=== PATIENT | female | born 1950 | race Caucasian/White ===

== ENCOUNTER 2016-12-16 17:00 | Inpatient (IN) ==
[2016-12-16] MEDS ORDERED: IOPAMIDOL 100 ML BOTTLE IJ ONE (17:01)
[2016-12-16] MEDS ORDERED: 0.9 % SODIUM CHLORIDE 1,000 ML IV ONE (17:15)
--- NOTE | 2016-12-16 17:28 | Emergency Department Note ---
SOB HPI - General Chief Complaint: Shortness of Breath/Dyspnea Stated Complaint: shortness of breath, low O2 sat, low bp Time Seen by Provider: 12/16/16 17:26 Source: patient Mode of arrival: ambulatory Limitations: no limitations - History of Present Illness 66-year-old female presents with shortness of breath and low blood pressure from Dr. Solis's office. She has had the shortness of breath and also a cough for about 3 weeks. She has had a chest x-ray which was negative 1 or 2 weeks ago. She has also been on azithromycin which she is finishing tomorrow. She has had an inhaler which she states helps and she also had some cough medicine. She states the cough is a little bit better but she is very short of breath. She states it does not matter what she is doing to be short of breath. She denies history of COPD or heart failure. She denies pedal edema. She states she has had a little bit of a fever. She is insulin-dependent type 2 diabetic and states she has not been eating much but her blood sugars have been running in the 300s. She denies abdominal pain, nausea, vomiting. She has not been drinking much water either. She gets dizzy when she stands up. - Related Data Home Medications Medication Instructions Recorded Confirmed Aspirin [Adult Low Dose Aspirin EC] 81 mg PO DAILY 02/02/15 12/16/16 glucosamine HCl 1,500 mg tablet 1,500 mg PO QDAY 11/17/15 12/16/16 Nortriptyline HCl [Pamelor] 10 mg PO HS 90 Days 03/01/16 12/16/16 colestipol 1 gram tablet 1 g PO QID tab 07/27/16 12/16/16 Previous Rx's Medication Instructions Recorded insulin syringe-needle U-100 1 mL See Dose Instructions .ROUTE 12/29/15 31 gauge x 08/23" .MEDSUPPLY #200 each sertraline 50 mg tablet 50 mg PO DAILY #90 tab 07/27/16 sitagliptin 100 mg tablet 100 mg PO QDAY #90 tab 07/27/16 omeprazole 20 mg capsule,delayed 20 mg PO QDAY #90 cap 10/14/16 release ropinirole 0.25 mg tablet 0.75 mg PO HS #270 tab 10/14/16 hydrocodone 7.5 mg-acetaminophen 1 tab PO Q6H PRN #20 tab 10/27/16 325 mg tablet methocarbamol 750 mg tablet 750 mg PO Q6H #30 tab 10/27/16 amlodipine 10 mg tablet 10 mg PO DAILY #90 tab 11/10/16 carvedilol 12.5 mg tablet 12.5 mg PO BID #180 tab 11/10/16 insulin glargine 100 unit/mL 180 unit SUB-Q .COMPLEX #180 ml 11/10/16 subcutaneous solution losartan 100 mg tablet 100 mg PO DAILY #90 tab 11/10/16 OneTouch Ultra Test strips See Dose Instructions .ROUTE 12/05/16 .MEDSUPPLY #200 each NS amoxicillin 875 mg-potassium 1 tab PO BID #20 tab 12/06/16 clavulanate 125 mg tablet albuterol sulfate HFA 90 2 puff INHALATION .Q4-6H PRN #18 g 12/13/16 mcg/actuation aerosol inhaler azithromycin 250 mg tablet 250 mg PO QDAY #6 tab 12/13/16 codeine 10 mg-guaifenesin 100 mg/5 10 ml PO TID PRN #120 ml 12/13/16 mL oral liquid Allergies Allergy/AdvReac Type Severity Reaction Status Date / Time No Known Drug Allergies Allergy Verified 12/16/16 16:03 Review of Systems All systems ED: reviewed and negative except as stated. Past Medical History - Past Medical History Medical history: Reports: arthritis, diabetes (insulin dependent type 2), hyperlipidemia, hypertension, osteoporosis, other (Spinal stenosis) Surgical history ED: Reports: cholecystectomy, knee replacement, orthopedic, other (Right wrist ORIF, carpal tunnel) [employer] history: Reports: non-contributory Family history: Reports: non-contributory - Social History smoking status: Former smoker Alcohol use: Reports: Occasionally Drug use: Reports: none Physical Exam - General Limitations: no limitations General appearance: alert, other (tachypnic) - Head Head exam: atraumatic - Eye Eye exam: Present: normal appearance. Absent: conjunctival injection - Neck Neck exam: Present: normal inspection, full ROM. Absent: tenderness, lymphadenopathy - Chest Chest inspection: Present: normal inspection, symmetric chest wall rise - Respiratory Respiratory exam: Present: other (decreased lung sounds in the lower lobes. She is not taking a deep breath). Absent: wheezes - Cardiovascular Cardiovascular exam: Present: regular rate, normal heart sounds - Abdominal Exam Abdominal exam: Present: soft, normal bowel sounds. Absent: tenderness - Extremities Exam Extremities exam: Present: normal inspection, full ROM - Neurological Exam Neurological exam: Present: alert, oriented X3 - Psychiatric Psychiatric exam: Present: anxious - Skin Skin exam: Present: warm, dry, intact Course Course Narrative: She will be admitted by Dr. Archuleta. She is still running 95% on 3L of oxygen at 2007 Vital Signs Temperature 98.8 F 12/16/16 17:00 Pulse Rate 73 12/16/16 17:00 Respiratory Rate 30 H 12/16/16 17:00 Blood Pressure 112/62 12/16/16 17:00 Pulse Oximetry (%) 82 L 12/16/16 17:00 Temperature 98.8 F 12/16/16 17:00 Pulse Rate 79 12/16/16 19:50 Respiratory Rate 30 H 12/16/16 19:50 Blood Pressure 98/68 12/16/16 19:50 Pulse Oximetry (%) 97 12/16/16 19:50 Shortness of Breath/Dyspnea - Lab Data Lab results reviewed: Yes I reviewed the patient's lab results. Result diagrams: 12/16/16 17:32 12/16/16 17:32 Lab Results 12/16/16 12/16/16 12/16/16 Range/Units 17:32 17:32 17:32 WBC 7.7 (4.5-11.0) K/mcL RBC 4.03 (4.00-5.20) M/mcL Hgb 11.8 L (12.0-15.0) g/dL Hct 35.5 L (36.0-48.0) % POC Hct (36.0-48.0) % MCV 88.1 (80.0-100.0) fL MCH 29.2 (26.0-34.0) pg MCHC 33.2 (31.0-36.0) g/dL RDW 15.7 H (11.5-14.5) % Plt Count 465 H (140-440) K/mcL MPV 7.7 (7.4-10.4) fL Total Counted 100 Seg Neutrophils % 86 H (38-78) % Band Neutrophils % Not Reportable Lymphocytes % 6 L (15-49) % Monocytes % (Manual) 6 (1-12) % Eosinophils % (Manual) 2 (0-7) % Platelet Estimate Increased (NORMAL) RBC Morphology Normal (NORMAL) VBG Lactic Acid 1.6 (0.5-2.2) mmol/L POC Sodium (133-145) mmol/L Sodium 135 (133-145) mmol/L POC Potassium (3.3-5.1) mmol/L Potassium 4.0 (3.3-5.1) mmol/L POC Chloride (96-108) mmol/L Chloride 94 L (96-108) mmol/L Carbon Dioxide 22 (22-30) mmol/L POC Total CO2 (22-30) mmol/L Anion Gap 19.0 H (8-16) POC BUN (8-23) mg/dl BUN 29 H (8-23) mg/dl Creatinine 1.2 H (0.6-1.1) mg/dl POC Creatinine (0.6-1.1) mg/dl GFR Calculation 46 Glucose 219 H (70-105) mg/dL POC Glucose (70-105) mg/dL Calcium 8.8 (8.6-10.4) mg/dl POC WB Ioniz Calcium (1.16-1.32) mmol/L Total Bilirubin 0.5 (0.0-1.0) mg/dL AST 47 H (0-37) U/l ALT 54 H (0-40) U/l Alkaline Phosphatase 221 H (39-117) U/L Troponin T (0-0.03) ng/ml NT-Pro-B Natriuret Pep (0-125) pg/ml Total Protein 6.5 (5.9-8.4) gm/dL Albumin 2.8 L (3.2-5.2) gm/dL Globulin 3.7 (2.2-3.7) gm/dL Albumin/Globulin Ratio 0.8 L (1.0-2.3) 12/16/16 12/16/16 12/16/16 Range/Units 17:32 17:32 18:05 WBC (4.5-11.0) K/mcL RBC (4.00-5.20) M/mcL Hgb (12.0-15.0) g/dL Hct (36.0-48.0) % POC Hct 37.0 (36.0-48.0) % MCV (80.0-100.0) fL MCH (26.0-34.0) pg MCHC (31.0-36.0) g/dL RDW (11.5-14.5) % Plt Count (140-440) K/mcL MPV (7.4-10.4) fL Total Counted Seg Neutrophils % (38-78) % Band Neutrophils % Lymphocytes % (15-49) % Monocytes % (Manual) (1-12) % Eosinophils % (Manual) (0-7) % Platelet Estimate (NORMAL) RBC Morphology (NORMAL) VBG Lactic Acid (0.5-2.2) mmol/L POC Sodium 134 (133-145) mmol/L Sodium (133-145) mmol/L POC Potassium 3.8 (3.3-5.1) mmol/L Potassium (3.3-5.1) mmol/L POC Chloride 102 (96-108) mmol/L Chloride (96-108) mmol/L Carbon Dioxide (22-30) mmol/L POC Total CO2 21 L (22-30) mmol/L Anion Gap (8-16) POC BUN 27 H (8-23) mg/dl BUN (8-23) mg/dl Creatinine (0.6-1.1) mg/dl POC Creatinine 1.2 H (0.6-1.1) mg/dl GFR Calculation Glucose (70-105) mg/dL POC Glucose 200 H (70-105) mg/dL Calcium (8.6-10.4) mg/dl POC WB Ioniz Calcium 1.03 L (1.16-1.32) mmol/L Total Bilirubin (0.0-1.0) mg/dL AST (0-37) U/l ALT (0-40) U/l Alkaline Phosphatase (39-117) U/L Troponin T < 0.01 (0-0.03) ng/ml NT-Pro-B Natriuret Pep 567.5 H (0-125) pg/ml Total Protein (5.9-8.4) gm/dL Albumin (3.2-5.2) gm/dL Globulin (2.2-3.7) gm/dL Albumin/Globulin Ratio (1.0-2.3) - Radiology Data Radiology results reviewed: Yes I reviewed the patient's radiology results. ARDs vs pneumonia. Negative for pulmonary embolism Disposition Pt seen by SHOE LAY OUT PLANNER/PA only: No Clinical Impression: ARDS (adult respiratory distress syndrome) Disposition: Xfer As Inpt ([facility]) Condition: Fair Referrals: Bacilio Alcocer MD [Primary Care Provider] -
[2016-12-16 18:00] LABS: Mean Cell Volume 88.1 fL (80.0-100.0); Mean Corpuscular HGB Conc 33.2 g/dL (31.0-36.0); Mean Corpuscular Hemoglobin 29.2 pg (26.0-34.0); Platelet Count 465 K/mcL (140-440); RBC 4.03 M/mcL (4.00-5.20); Red Cell Distribution Width 15.7 % (11.5-14.5)
[2016-12-16 18:25] LABS: ALT/SGPT 54 U/l (0-40); Albumin 2.8 gm/dL (3.2-5.2); Albumin/Globulin Ratio 0.8 (1.0-2.3); Alkaline Phosphatase 221 U/L (39-117); Blood Urea Nitrogen 29 mg/dl (8-23)
[2016-12-16 18:31] LABS: Eosinophils % (Manual) 2 % (0-7); Lymphocytes % 6 % (15-49); Monocytes % (Manual) 6 % (1-12); Platelet Estimate INCREASED (NORMAL); RBC Morphology NORMAL (NORMAL); Segmented Neutrophils % 86 % (38-78)
--- NOTE | 2016-12-16 18:49 | Cat Scan Report ---
CLINICAL INFORMATION: Dyspnea. Hypoxia COMPARISON: Previous chest x-ray dated 12/13/2016. Previous chest CT scan dated 09/01/2011 TECHNIQUE: Axial images obtained through the chest. 80 mL nonionic contrast material was administered, and scanning was performed during pulmonary arterial phase. Sagittally and coronally reformatted images were obtained. MIP reformatted images. FINDINGS: Patient has a history of smoking. There is centrilobular emphysema. There are diffuse groundglass infiltrates throughout both lungs. This is a nonspecific appearance. Differential diagnosis for acute disease including acute interstitial pneumonia, ARDS, pulmonary edema or hemorrhage, eosinophilic pneumonia. Infectious pneumonia can also cause this appearance including viral pneumonia is an mycoplasma pneumonia No focal consolidation. No significant bronchiectasis. No pulmonary parenchymal mass. Main pulmonary artery, right pulmonary artery, left pulmonary artery are negative. No intraluminal filling defects. No lobar, segmental, or subsegmental abnormalities. Negative examination for pulmonary embolism. Paula and mediastinum are negative. There are small perivascular and pretracheal mediastinal lymph nodes that measure 10 mm or less in size. No axillary adenopathy. Upper abdomen is negative. Patient has undergone previous cholecystectomy. No rib, sternal, or vertebral body abnormalities IMPRESSION: 1. Negative pulmonary CTA. No pulmonary embolism 2. Centrilobular emphysema 3. Diffuse groundglass infiltrates. Findings are nonspecific. Differential diagnosis is given above Interpreted and Authenticated by: Amor Whitmore 12/16/16
--- NOTE | 2016-12-16 20:20 | Internal Med History&Physical ---
Medical - H&P: HPI Patient information: Note initiated : 12/16/16 at 8:20 pm Service Date, if different from initiated Date: [] Patient: Irma Craig a 66 y/o F admitted on for shortness of breath, low O2 sat, low bp. Chief Complaint: [] History of present illness: Ms. Craig is a 66 year old Female with h/o smoking in the past presents to the ER with complaints of shortness of breath, cough, not feeling well, fever, headache and nausea/ vomiting x 2 weeks The patient was alright approximately 2 weeks ago, when she started to have some headache, with some photophobia, she also noted difficulty in breathing and cough, she had a low grade temperature tmax as per was 101. There was ? sinus symptoms. the cough was dry without sputum associated with shortness of breath, at rest and activity. She also thought there may be some wheezing. The patient symptoms worsened after a few days and therefore she saw Dr Loza, who started the patient on Augmentin. The patient did take the medication but did not have much relief. The patients symptoms so she went back to see the doctor. This time her oxygen sats were low in the clinic but she responded to albuterol She was started on z pack and albuterol along with some cough medication. Plan was also to use medrol dose pack, but I did not see any prescription for same. The patient took her meds but there was no improvement in her symptoms. She was supposed to see her pcp next week but since her condition worsend,and that she had nausea and vomiting, with very little pp intake she was asked to come to the ER for further eval. In the ER she was hypoxic and tachypenic, she had normal wbc count, slight bump in her creat from 0.8 ti 1.2, elevated neurtophils but normal eosinophils, mildly elevated bnp, neg ekg for acute ischemia and neg troponin. She underwent a CT Scan which shows a diffuse infiltrative disease ARDS vs Intersitial PNA vs Pulm Hemorrhage, vs ILD vs inflammatory disease vs atypical pna. Neg for PE The patient was admitted to the hospital for further management The patient denies any h/o chest pains, no edema feet, no sick contacts, no travel or camping, no pets or contact with birds. She has strong history of smoking but PFT done in 2016 was reported as normal. CXR in past normal, CT abdomen 2015 showed normal lung architecture. The patient has h/o smoking in the past but has quit in . All systems: reviewed and no additional remarkable complaints except as stated ( as per HPI) Medical - H&P: H Medical history: Medical History (Last Updated 12/16/16 @ 20:09 by Abigail Suarez PA-C) Metabolic Syndrome X (Chronic) Rash (Chronic) Chest pain (Resolved) Atrophic vaginitis (Chronic) Vasomotor instability (Chronic) Vaginitis and vulvovaginitis (Chronic) Urinary retention (Resolved 02/28/14) Gastric ulcer (Resolved) Stress reaction (Resolved) Spondylolysis of lumbosacral region (Chronic 03/14/14) Spinal stenosis of lumbar region (Chronic) Snoring (Chronic) Restless leg syndrome (Chronic) Reactive airway disease (Chronic 10/07/13) Plantar fasciitis (Resolved 07/03/14) Pancreatic cyst (Chronic 03/31/14) Palpitations (Resolved) Osteoporosis (Chronic) Osteoarthritis (Chronic 06/16/14) Obesity (Chronic) Lung nodule (Chronic) Neuropathy, 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) Dysmetabolic syndrome X (Chronic) Hyposmolality and/or hyponatremia (Resolved 03/04/14) Leukocytosis (Resolved 02/28/14) Intradermal nevus (Resolved 12/31/13) Insomnia (Chronic) Inguinal pain (Resolved) Hypotension (Chronic 02/28/14) Hyponatremia (Resolved 02/28/14) Hypertension, essential (Chronic) Hyperlipidemia (Chronic) Hematoma (Resolved 03/24/14) Heartburn (Chronic 02/14/14) Gastroesophageal reflux (Chronic) Closed right forearm fracture (Resolved 04/28/05) Fatigue (Chronic) Facet arthropathy (Chronic) Dyspnea on exertion (Chronic) Diverticulitis of colon (Chronic) Diarrhea (Resolved 01/16/13) Diabetes mellitus (Chronic) Dermatitis (Resolved) De Quervain's tenosynovitis, bilateral (Chronic) Depression (Chronic) Dehydration (Resolved 03/04/14) DDD (degenerative disc disease) (Chronic 03/14/14) Costochondritis (Chronic) Cholecystitis (Resolved 02/25/14) Chest pain (Chronic) Cataract (Chronic) Carpal tunnel syndrome (Chronic) Calcaneal spur (Chronic) Bursitis of both hips (Chronic 09/03/14) Paresthesia (Chronic 07/03/14) Bronchitis (Chronic 01/16/13) Abdominal pain, epigastric (Resolved) Surgical history: Past Surgical History (Last Reviewed 12/06/16 @ 14:07 by Lizz Loza, VAZQUEZ, ALEJA) S/P wrist surgery (Resolved) History of open reduction and internal fixation (ORIF) procedure (Resolved) Laceration of wrist, left (Resolved) Knee arthropathy (Resolved 09/15/08) History of excision of lesion (Resolved) H/O esophagogastroduodenoscopy (Resolved 03/20/14) History of colonoscopy (Resolved 05/11/10) History of cholecystectomy (Resolved 02/24/14) Pertinent family history: Family History (Last Reviewed 12/06/16 @ 14:07 by Lizz Loza, VAZQUEZ, ALEJA) Sister Malignant neoplasm of breast Malignant neoplasm of uterus Brother Malignant neoplasm of esophagus Mother Diabetes mellitus Father Mesothelioma Cardiac disease Medical - H&P: Meds Home Medications Medication Instructions Recorded Confirmed Type insulin syringe-needle U-100 1 mL See Dose Instructions .ROUTE 12/29/15 Rx 31 gauge x 5/16" .MEDSUPPLY #200 each omeprazole 20 mg capsule,delayed 20 mg PO QDAY #90 cap 10/14/16 12/16/16 Rx release ropinirole 0.25 mg tablet 0.75 mg PO HS #270 tab 10/14/16 12/16/16 Rx amlodipine 10 mg tablet 10 mg PO DAILY #90 tab 11/10/16 12/16/16 Rx carvedilol 12.5 mg tablet 12.5 mg PO BID #180 tab 11/10/16 12/16/16 Rx insulin glargine 100 unit/mL 180 unit SUB-Q .COMPLEX #180 ml 11/10/16 12/16/16 Rx subcutaneous solution losartan 100 mg tablet 100 mg PO DAILY #90 tab 11/10/16 12/16/16 Rx OneTouch Ultra Test strips See Dose Instructions .ROUTE 12/05/16 12/16/16 Rx .MEDSUPPLY #200 each NS Allergies Allergy/AdvReac Type Severity Reaction Status Date / Time No Known Drug Allergies Allergy Verified 12/16/16 16:03 Medical - H&P: Exam - Constitutional Vitals: Temp Pulse Resp BP Pulse Ox 98.8 F 91 H 23 H 123/82 100 12/16/16 17:00 12/16/16 20:05 12/16/16 20:01 12/16/16 20:05 12/16/16 20:05 Exam: GENERAL: The patient is a well-developed, well-nourished in no apparent distress. Is alert and oriented x3. VITAL SIGNS: Reviewed and as noted elsewhere. HEENT: Head is normocephalic and atraumatic. Extraocular muscles are intact. Pupils are equal, round, and reactive to light. Nares appeared normal. Mouth appears any without lesions. Mucous membranes are dry NECK: Normal to inspection, Supple, No lymphadenopathy or thyromegaly. LUNGS: Air entry equal on both sides but decreased bilaterally , no wheezing, very mild inspiratory crackles at bases noted. No rhonchi noted. No accessory muscles of respiration HEART: Regular rate and rhythm normal, S1 and S2 heard, no Gallop, S3 or Rub Noted, No Gross murmur heard. ABDOMEN: Soft, nontender, and nondistended. Positive bowel sounds. No hepatosplenomegaly was noted. EXTREMITIES: No cyanosis, clubbing, rash, lesions or edema. NEUROLOGIC: Cranial nerves II through XII are grossly intact. Motor and Sensory System Grossly Intact PSYCHIATRIC: Normal affect, Normal Mood. Appropriate Behavior. SKIN: No ulceration or wounds noted, No jaundice, No rash noted. Medical - H&P: Reslt - Labs CBC & Chem 7: 12/16/16 17:32 12/16/16 17:32 Labs: Short CBC 12/16/16 Range/Units 17:32 WBC 7.7 (4.5-11.0) K/mcL Hgb 11.8 L (12.0-15.0) g/dL Hct 35.5 L (36.0-48.0) % Plt Count 465 H (140-440) K/mcL BMP 12/16/16 17:32 Sodium 135 Potassium 4.0 Chloride 94 L Carbon Dioxide 22 BUN 29 H Creatinine 1.2 H Glucose 219 H Calcium 8.8 Cardiac Enzymes 12/16/16 Range/Units 17:32 Troponin T < 0.01 (0-0.03) ng/ml Liver Function 12/16/16 Range/Units 17:32 Total Bilirubin 0.5 (0.0-1.0) mg/dL AST 47 H (0-37) U/l ALT 54 H (0-40) U/l Alkaline Phosphatase 221 H (39-117) U/L Albumin 2.8 L (3.2-5.2) gm/dL - ABG Interpretation -: ABG interpreted by me Interpretation: respiratory alkalosis - EKG Data -: EKG Reviewed by Myself Medical - H&P: A/P - Narrative A/P Narrative: A/P Acute hypoxic Respiratory Failure: Treatment of underlying etiology, supplemental nasal canula, Place on bipap if declines. Interstitial Infiltrates: A very wide differential diagnosis, initiate workup for atypical organisms, mycoplasma, legionella, fungal panel, autoimmune workup sent. Will get Pulmonary evaluation. Start on Steroids as well as DuoNebs IV levofloxacin for pna coverage should cover atypicals, pt was treated with augmentin as well as zpack. DM: Glucose elevated, start on latus bid and sliding scale insulin, expect glucose to go high, takes 90 units of latnus bid at home, continue januvia. HTN hold bp meds for now, resume once bp stable Acute Kidney INjury: Creat is 1.2, baseline 0.8, IV fluids for now. h/o reflux disease: takes prilosec, start on pantoprazole. DVT hep sq Full code CARb consistent diet. Social History - Social History household members: spouse housing: house lives independently: Yes marital status: occupational status: retired - Tobacco smoking status: Former smoker - Alcohol alcohol intake frequency: a few times a week
--- NOTE | 2016-12-16 20:22 | Emergency Department Note ---
ED Note Addendum Note Addendum: I examined this patient and discussed it with the mid-level and agree with the assessment and plan.
[2016-12-16] MEDS ORDERED: MAGNESIUM HYDROXIDE 30 ML ORAL.SUSP PO PRN (21:22)
[2016-12-16] MEDS ORDERED: DEXTROSE 50% 50 ML VIAL IV PRN (21:22)
[2016-12-16] MEDS ORDERED: HYDROcodone/APAP 5/325MG TABLET PO PRN (21:22)
[2016-12-16] MEDS ORDERED: DEXTROSE 31 GM ORAL.SUSP PO PRN (21:22)
[2016-12-16] MEDS ORDERED: ONDANSETRON 4 MG/2 ML VIAL IV PRN (21:22)
[2016-12-16] MEDS ORDERED: ACETAMINOPHEN 325 MG TABLET PO PRN (21:22)
[2016-12-16] MEDS ORDERED: NALOXONE HCL 0.4 MG/ML VIAL IV PRN (21:22)
[2016-12-16] MEDS ORDERED: METHOCARBAMOL 750 MG TABLET PO PRN (21:44)
[2016-12-16] MEDS: 0.9 % SODIUM CHLORIDE 1,000 ML IV SCH (21:56)
[2016-12-16] MEDS: COLESTIPOLL 1 GM TABLET PO SCH (22:16)
[2016-12-16] MEDS: NORTRIPTYLINE 10 MG CAPSULE PO SCH (22:16)
[2016-12-16 22:37] LABS: C-Reactive Protein 14.4 mg/dl (0.0-0.8); Creatine Kinase 99 IU/L (24-170)
[2016-12-16 22:39] LABS: Complement C3 226.5 mg/dl (90-180); Rheumatoid Factor 11 IU/ml (0-14)
[2016-12-16] MEDS: rOPINIRole 0.25 MG TABLET PO SCH (22:43)
[2016-12-16] MEDS: INSULIN LISPRO 1 UNIT/0.01 ML UNIT SQ SCH (22:45)
[2016-12-16] MEDS: INSULIN GLARGINE, HUMAN 1 UNIT/0.01 ML SQ SCH (22:46)
[2016-12-16 22:48] LABS: Hepatitis B Surface Antibody NEGATIVE (NEGATIVE)
[2016-12-16] MEDS: methylPREDNISolone SOD SUCC 125 MG/2 ML VIAL IV SCH (22:48)
[2016-12-16 22:49] LABS: Hepatitis B Surface Antigen NEGATIVE (NEGATIVE)
[2016-12-16 22:51] LABS: HIV1/2 AG/AB 4TH Generation NON-REACTIVE; Hepatitis C Virus Antibody NON REACTIVE (NEGATIVE)
[2016-12-16] MEDS: HEPARIN 5,000 UNIT/ML VIAL SQ SCH (22:55)
[2016-12-16] MEDS: IPRATROPIUM/ALBUTEROL 3 ML AMPUL.NEB NEB SCH (22:55)
[2016-12-16] MEDS: LEVOFLOXACIN 750 MG/150 ML BAG IV SCH (22:55)
[2016-12-16 23:02] LABS: Estimated Average Glucose(eAG) 260 mg/dL; Hemoglobin A1C 10.7 % HGB (4.0-6.0)
[2016-12-17 00:20] LABS: Appearance,Urine CLEAR; Bilirubin,Urine NEG (NEG); Color,Urine YELLOW; Glucose,Urine (UA) NORM (NEG); Leukocyte Esterase,Urine NEG /uL (NEG); Nitrate,Urine NEG (NEG); PH,Urine 5.5 (5.0-9.0); Protein,Urine NEG (NEG); Specific Gravity,Urine 1.005 (1.000-1.035); Urine Blood NEG mg/dL (<0.03); Urobilinogen,Urine NORM (NEG)
[2016-12-17] MEDS: IPRATROPIUM/ALBUTEROL 3 ML AMPUL.NEB NEB SCH ×6 (03:10→22:39)
[2016-12-17] MEDS: methylPREDNISolone SOD SUCC 125 MG/2 ML VIAL IV SCH ×3 (05:13→21:54)
[2016-12-17] MEDS: 0.9 % SODIUM CHLORIDE 1,000 ML IV SCH ×3 (05:15→20:32)
[2016-12-17 05:20] LABS: Basophils # (Auto) 0 K/mcL (0.0-0.3); Basophils % (Auto) 0.1 % (0.0-2.0); Eosinophils # (Auto) 0 K/mcL (0.0-0.7); Eosinophils % (Auto) 0.5 % (0.0-7.0); Granulocytes % (Auto) 90.6 % (38.0-78.0); Lymphocytes # (Auto) 0.4 K/mcL (1.5-4.8); Lymphocytes % (Auto) 6.6 % (15.5-49.0); Mean Corpuscular HGB Conc 33.4 g/dL (31.0-36.0); Mean Corpuscular Hemoglobin 29.7 pg (26.0-34.0); Monocytes # (Auto) 0.1 K/mcL (0.1-0.9); Monocytes % (Auto) 2.2 % (1.0-12.0); Platelet Count 455 K/mcL (140-440); RBC 4.04 M/mcL (4.00-5.20); Red Cell Distribution Width 15.5 % (11.5-14.5)
[2016-12-17 05:45] LABS: ALT/SGPT 50 U/l (0-40); Albumin 2.6 gm/dL (3.2-5.2); Albumin/Globulin Ratio 0.7 (1.0-2.3); Alkaline Phosphatase 209 U/L (39-117); Bilirubin,Direct < 0.2 mg/dL (0.0-0.3); Blood Urea Nitrogen 19 mg/dl (8-23); Gamma Glutamyl Transpeptidase 122 U/L (5-36)
[2016-12-17] MEDS: 0.9 % SODIUM CHLORIDE 10 ML SYRINGE IV SCH ×3 (07:15→21:52)
[2016-12-17] MEDS: INSULIN LISPRO 1 UNIT/0.01 ML UNIT SQ SCH ×5 (07:42→21:56)
[2016-12-17] MEDS: PANTOPRAZOLE 40 MG TABLET PO SCH (07:42)
[2016-12-17] MEDS: SERTRALINE 50 MG TABLET PO SCH (08:19)
[2016-12-17] MEDS: HEPARIN 5,000 UNIT/ML VIAL SQ SCH ×2 (08:19→21:54)
[2016-12-17] MEDS: ASPIRIN 81 MG TAB.CHEW PO SCH (08:19)
[2016-12-17] MEDS: INSULIN GLARGINE, HUMAN 1 UNIT/0.01 ML SQ SCH ×2 (08:23→21:55)
[2016-12-17] MEDS: sitaGLIPtin 50 MG TABLET PO SCH (08:26)
[2016-12-17] MEDS: COLESTIPOLL 1 GM TABLET PO SCH ×4 (08:53→21:53)
--- NOTE | 2016-12-17 11:30 | Internal Med Progress Note ---
Medical - PN: Subj Patient information: Note initiated : 12/17/16 at 11:30 am Service Date, if different from initiated Date: [] Patient: Irma Craig a 66 y/o F admitted on 12/16/16 for shortness of breath, low O2 sat, low bp. Chief Complaint: [] Interval history: Ms. Craig is a 66 year old Female with h/o smoking in the past presents to the ER with complaints of shortness of breath, cough, not feeling well, fever, headache and nausea/ vomiting x 2 weeks The patient was alright approximately 2 weeks ago, when she started to have some headache, with some photophobia, she also noted difficulty in breathing and cough, she had a low grade temperature tmax as per was 101. There was ? sinus symptoms. the cough was dry without sputum associated with shortness of breath, at rest and activity. She also thought there may be some wheezing. The patient symptoms worsened after a few days and therefore she saw Dr Loza, who started the patient on Augmentin. The patient did take the medication but did not have much relief. The patients symptoms so she went back to see the doctor. This time her oxygen sats were low in the clinic but she responded to albuterol She was started on z pack and albuterol along with some cough medication. Plan was also to use medrol dose pack, but I did not see any prescription for same. The patient took her meds but there was no improvement in her symptoms. She was supposed to see her pcp next week but since her condition worsend,and that she had nausea and vomiting, with very little pp intake she was asked to come to the ER for further eval. In the ER she was hypoxic and tachypenic, she had normal wbc count, slight bump in her creat from 0.8 ti 1.2, elevated neurtophils but normal eosinophils, mildly elevated bnp, neg ekg for acute ischemia and neg troponin. She underwent a CT Scan which shows a diffuse infiltrative disease ARDS vs Intersitial PNA vs Pulm Hemorrhage, vs ILD vs inflammatory disease vs atypical pna. Neg for PE The patient was admitted to the hospital for further management The patient denies any h/o chest pains, no edema feet, no sick contacts, no travel or camping, no pets or contact with birds. She has strong history of smoking but PFT done in 2016 was reported as normal. CXR in past normal, CT abdomen 2015 showed normal lung architecture. The patient has h/o smoking in the past but has quit in . 12/17: The patient seen examined, no acute ovenight events, her oxygen requirement went up from 3L to 6L this am, and now is being weaned down, she has no new concerns or complaints to report, does have shortness of breath and cough which is still bothering her. Pertinent ROS: Denies headache, dizziness Present chest pain with cough, no palpitations Present cough and shortness of breath Denies abdominal pain, nausea or vomiting. - Constitutional Vitals: Vital Signs Temp Pulse Resp BP Pulse Ox 98.8 F 80 13 96/67 91 12/17/16 07:10 12/17/16 11:16 12/17/16 11:16 12/17/16 07:10 12/17/16 07:10 Period Temp Pulse Resp BP Sys/Waldron Pulse Ox Last 24 Hr 96.9 F-98.8 F 74-91 13-30 96-121/51-67 78-99 Intake and Output 12/16/16 12/17/16 12/17/16 21:59 05:59 13:59 Intake Total 1450 / 1450 Output Total 150 / 150 1200 / 1200 150 / 150 Balance -150 / 850 250 / 250 -150 / -150 Weight 206 lb 6.4 oz 206 lb 6.4 oz Intake & Output: Intake & Output 12/16/16 12/17/16 12/17/16 21:59 05:59 13:59 Intake Total 1450 / 1450 Output Total 150 / 150 1200 / 1200 150 / 150 Balance -150 / 850 250 / 250 -150 / -150 Weight 206 lb 6.4 oz 206 lb 6.4 oz Intake: IV 1150 / 1150 Sodium Chloride 0.9% 1, 1000 / 1000 000 ml @ 150 mls/hr IV . Q6H40M [facility] Rx#:[id number] Oral 300 / 300 Output: Void Amount 150 / 150 1200 / 1200 150 / 150 Exam: Constitutional; Afebrile, cooperative, alert, not in distress. Eyes- No icterus, , No periorbital swelling Ears- Ext ear normal, hearing normal to conversation. Neck- Midline trachea, supple Respiratory system: Air Entry equal on both sides, decreased air entry bilaterally, consuelo inspiratory crackles, mild exp wheezing. CVS- Rate rhythm regular, S1,S2 heard, no gallop, no rub. Abdomen- Soft nontender abdomen, no organomegaly, no tenderness, no guarding or rigidity, WOOL BRUSHER- AOOx3, moving all extremities, no gross focal deficit noted. Medical - PN: Obj Da - Labs CBC & Chem 7: 12/17/16 03:56 12/17/16 03:56 Labs: Abnormal Lab Results 12/17/16 12/17/16 12/16/16 03:56 03:56 21:51 Hct 35.9 L RDW 15.5 H Plt Count 455 H Gran % 90.6 H Lymph % (Auto) 6.6 L Lymph # (Auto) 0.4 L ESR Carbon Dioxide 20 L Anion Gap 17.0 H Glucose 217 H Hemoglobin A1c 10.7 H GGT 122 H AST 44 H ALT 50 H Alkaline Phosphatase 209 H Lactate Dehydrogenase 301 H C-Reactive Protein Albumin 2.6 L Globulin 3.9 H Albumin/Globulin Ratio 0.7 L Triglycerides 155 H Complement C3 Complement C4 12/16/16 12/16/16 12/16/16 21:51 21:51 21:51 Hct RDW Plt Count Gran % Lymph % (Auto) Lymph # (Auto) ESR 111 H Carbon Dioxide Anion Gap Glucose Hemoglobin A1c GGT AST ALT Alkaline Phosphatase Lactate Dehydrogenase C-Reactive Protein 14.4 H Albumin Globulin Albumin/Globulin Ratio Triglycerides Complement C3 226.5 H Complement C4 60.7 H Meds: Medications Acetaminophen (Tylenol) 650 mg PO Q6HP PRN PRN Reason: PAIN/FEVER > 101 Hydrocodone Bitart/Acetaminophen (Watson 5/325mg) 1 tab PO Q4HP PRN PRN Reason: Pain Albuterol/Ipratropium (Duoneb) 3 ml NEB Q4HRT [facility] Last Admin: 12/17/16 11:12 Dose: 3 ml Aspirin (Aspirin) 81 mg PO DAILY [facility] Last Admin: 12/17/16 08:19 Dose: 81 mg Colestipol HCl (Colestid) 1 gm PO QID [facility] Last Admin: 12/17/16 08:53 Dose: 1 gm Dextrose (Dextrose 50%) 0 ml IV UD PRN PRN Reason: Hypoglycemia Diagnostic Test (Pha) (Accu-Chek) 1 each FS ACHS [facility] Last Admin: 12/17/16 07:39 Dose: 1 each Glucose (Insta-Glucose) 15 gm PO PRN PRN PRN Reason: Hypoglycemia Heparin Sodium (Porcine) (Heparin) 5,000 unit SQ Q12 [facility] Last Admin: 12/17/16 08:19 Dose: 5,000 unit Levofloxacin (Levaquin) 750 mg in 150 mls @ 100 mls/hr IV DAILY [facility] Stop: 12/22/16 10:29 Last Infusion: 12/17/16 00:30 Dose: Infused Sodium Chloride (Sodium Chloride 0.9%) 1,000 mls @ 150 mls/hr IV .Q6H40M [facility] Stop: 12/18/16 00:01 Last Admin: 12/17/16 05:15 Dose: 150 mls/hr Insulin Glargine (Lantus) 80 unit SQ BID [facility] Insulin Human Lispro (Humalog) 0 unit SQ ACHS [facility] PRN Reason: Protocol Last Admin: 12/17/16 07:42 Dose: 8 unit Magnesium Hydroxide (Milk Of Magnesia) 30 ml PO DAILYP PRN PRN Reason: Constipation Methocarbamol (Robaxin) 750 mg PO Q6HP PRN PRN Reason: Muscle Spasm Methylprednisolone Sodium Succinate (Solu-Medrol) 62.5 mg IV Q8 [facility] Last Admin: 12/17/16 05:13 Dose: 62.5 mg Naloxone HCl (Narcan) 0.1 mg IV Q2MIN PRN PRN Reason: Opiate Reversal Nortriptyline HCl (Pamelor) 10 mg PO HS [facility] Last Admin: 12/16/16 22:16 Dose: 10 mg Ondansetron HCl (Zofran) 4 mg IV Q4HP PRN PRN Reason: Nausea And Vomiting Pantoprazole Sodium (Protonix) 40 mg PO QAMAC [facility] Last Admin: 12/17/16 07:42 Dose: 40 mg Ropinirole HCl (Requip) 0.75 mg PO HS [facility] Last Admin: 12/16/16 22:43 Dose: 0.75 mg Sertraline HCl (Zoloft) 50 mg PO DAILY [facility] Last Admin: 12/17/16 08:19 Dose: 50 mg Sitagliptin Phosphate (Januvia) 100 mg PO QDAY [facility] Last Admin: 12/17/16 08:26 Dose: 100 mg Sodium Chloride (Saline Flush) 10 ml IV Q8 [facility] Last Admin: 12/17/16 07:15 Dose: 10 ml Medical - PN: A/P - Time Spent With Patient Total time spent is greater than 50% in coordination of care (as documented) at patient's floor/unit and/or counseling patient: - Narrative A/P Narrative: A/P Acute hypoxic Respiratory Failure: Treatment of underlying etiology, supplemental nasal canula 4-5L for now, Place on bipap if declines. abg reviewed, Interstitial Infiltrates: A very wide differential diagnosis, initiate workup for atypical organisms, mycoplasma, legionella, fungal panel, autoimmune workup sent. Will get Pulmonary evaluation. Start on Steroids as well as DuoNebs IV levofloxacin for pna coverage should cover atypicals, pt was treated with augmentin as well as zpack. Pulmonary consulted, workup for autoimmune disease pending. Mycoplasma is neg. DM: Glucose elevated, increase lantus to 80 bid, uptitreate as needed. HTN hold bp meds for now, resume once bp stable Acute Kidney INjury: Creat is back to baseline Abnl LFt mildly elevated ast, alt and alk phos, consider USG of the liver if does not improve, likely from use of augmentin, hepatitis panel pending. s/p cholecystectomy h/o reflux disease: takes prilosec, start on pantoprazole. DVT hep sq Full code CARb consistent diet.
[2016-12-17] MEDS: LEVOFLOXACIN 750 MG/150 ML BAG IV SCH (13:54)
[2016-12-17] MEDS: NORTRIPTYLINE 10 MG CAPSULE PO SCH (21:53)
[2016-12-17] MEDS: rOPINIRole 0.25 MG TABLET PO SCH (21:55)
[2016-12-18] MEDS: IPRATROPIUM/ALBUTEROL 3 ML AMPUL.NEB NEB SCH ×6 (03:04→22:26)
[2016-12-18] MEDS: 0.9 % SODIUM CHLORIDE 10 ML SYRINGE IV SCH ×4 (05:37→21:47)
[2016-12-18] MEDS: methylPREDNISolone SOD SUCC 125 MG/2 ML VIAL IV SCH ×3 (05:41→21:48)
[2016-12-18] MEDS: PANTOPRAZOLE 40 MG TABLET PO SCH (07:42)
[2016-12-18] MEDS: sitaGLIPtin 50 MG TABLET PO SCH (08:12)
[2016-12-18] MEDS: SERTRALINE 50 MG TABLET PO SCH (08:12)
[2016-12-18] MEDS: ASPIRIN 81 MG TAB.CHEW PO SCH (08:13)
[2016-12-18] MEDS: INSULIN LISPRO 1 UNIT/0.01 ML UNIT SQ SCH ×4 (08:26→20:37)
[2016-12-18] MEDS: INSULIN GLARGINE, HUMAN 1 UNIT/0.01 ML SQ SCH ×2 (08:27→20:37)
[2016-12-18 08:49] LABS: Basophils # (Auto) 0 K/mcL (0.0-0.3); Basophils % (Auto) 0 % (0.0-2.0); Eosinophils # (Auto) 0.1 K/mcL (0.0-0.7); Eosinophils % (Auto) 0.8 % (0.0-7.0); Granulocytes % (Auto) 90.5 % (38.0-78.0); Lymphocytes # (Auto) 0.5 K/mcL (1.5-4.8); Lymphocytes % (Auto) 5.4 % (15.5-49.0); Mean Cell Volume 90.1 fL (80.0-100.0); Mean Corpuscular HGB Conc 32.9 g/dL (31.0-36.0); Mean Corpuscular Hemoglobin 29.6 pg (26.0-34.0); Monocytes # (Auto) 0.3 K/mcL (0.1-0.9); Monocytes % (Auto) 3.3 % (1.0-12.0); Platelet Count 463 K/mcL (140-440); RBC 3.84 M/mcL (4.00-5.20); Red Cell Distribution Width 15.8 % (11.5-14.5)
[2016-12-18 09:12] LABS: ALT/SGPT 37 U/l (0-40); Albumin 2.8 gm/dL (3.2-5.2); Albumin/Globulin Ratio 0.8 (1.0-2.3); Alkaline Phosphatase 189 U/L (39-117); Bilirubin,Direct < 0.2 mg/dL (0.0-0.3); Blood Urea Nitrogen 16 mg/dl (8-23); Gamma Glutamyl Transpeptidase 101 U/L (5-36); Uric Acid 2.6 mg/dL (2.5-8.0)
[2016-12-18] MEDS: COLESTIPOLL 1 GM TABLET PO SCH ×4 (09:24→20:13)
[2016-12-18] MEDS: HEPARIN 5,000 UNIT/ML VIAL SQ SCH ×2 (09:25→20:13)
[2016-12-18] MEDS: LEVOFLOXACIN 750 MG/150 ML BAG IV SCH (09:26)
--- NOTE | 2016-12-18 15:13 | Internal Med Progress Note ---
Medical - PN: Subj Patient information: Note initiated : 12/18/16 at 3:09 pm Service Date, if different from initiated Date: [] Patient: Irma Craig a 66 y/o F admitted on 12/16/16 for shortness of breath, low O2 sat, low bp. Chief Complaint: [] Interval history: Ms. Craig is a 66 year old Female with h/o smoking in the past presents to the ER with complaints of shortness of breath, cough, not feeling well, fever, headache and nausea/ vomiting x 2 weeks The patient was alright approximately 2 weeks ago, when she started to have some headache, with some photophobia, she also noted difficulty in breathing and cough, she had a low grade temperature tmax as per was 101. There was ? sinus symptoms. the cough was dry without sputum associated with shortness of breath, at rest and activity. She also thought there may be some wheezing. The patient symptoms worsened after a few days and therefore she saw Dr Loza, who started the patient on Augmentin. The patient did take the medication but did not have much relief. The patients symptoms so she went back to see the doctor. This time her oxygen sats were low in the clinic but she responded to albuterol She was started on z pack and albuterol along with some cough medication. Plan was also to use medrol dose pack, but I did not see any prescription for same. The patient took her meds but there was no improvement in her symptoms. She was supposed to see her pcp next week but since her condition worsend,and that she had nausea and vomiting, with very little pp intake she was asked to come to the ER for further eval. In the ER she was hypoxic and tachypenic, she had normal wbc count, slight bump in her creat from 0.8 ti 1.2, elevated neurtophils but normal eosinophils, mildly elevated bnp, neg ekg for acute ischemia and neg troponin. She underwent a CT Scan which shows a diffuse infiltrative disease ARDS vs Intersitial PNA vs Pulm Hemorrhage, vs ILD vs inflammatory disease vs atypical pna. Neg for PE The patient was admitted to the hospital for further management The patient denies any h/o chest pains, no edema feet, no sick contacts, no travel or camping, no pets or contact with birds. She has strong history of smoking but PFT done in 2016 was reported as normal. CXR in past normal, CT abdomen 2015 showed normal lung architecture. The patient has h/o smoking in the past but has quit in . 12/17: The patient seen examined, no acute ovenight events, her oxygen requirement went up from 3L to 6L this am, and now is being weaned down, she has no new concerns or complaints to report, does have shortness of breath and cough which is still bothering her. 12/18: Patient seen examined, no acute overnight events, echo done shows normal lvef, pt feels somewhat better, but still on 4L oxygen, desaturates easily with minimal movement. Pulm eval appreciated. Await autoimmune workup for now. Plan of care reviewed with the patient and her . Pertinent ROS: Denies headache, dizziness Denies chest pain, palpitations Present cough but improved, sob present. Denies abdominal pain, nausea or vomiting. - Constitutional Vitals: Vital Signs Temp Pulse Resp BP Pulse Ox 96.4 F L 90 18 128/67 94 12/18/16 12:00 12/18/16 14:30 12/18/16 14:30 12/18/16 12:00 12/18/16 12:00 Period Temp Pulse Resp BP Sys/Waldron Pulse Ox Last 24 Hr 96.4 F-98.1 F 76-96 18-28 103-134/46-67 90-95 Intake and Output 12/18/16 12/18/16 12/18/16 05:59 13:59 21:59 Intake Total 200 / 200 1370 / 1370 Output Total 600 / 600 300 / 300 Balance -400 / -400 1070 / 1070 Intake & Output: Intake & Output 12/18/16 12/18/16 12/18/16 05:59 13:59 21:59 Intake Total 200 / 200 1370 / 1370 Output Total 600 / 600 300 / 300 Balance -400 / -400 1070 / 1070 Intake: IV 1150 / 1150 Oral 200 / 200 220 / 220 Output: Void Amount 600 / 600 300 / 300 Other: Meal Lunch Percent of Meal Consumed 100% Feeding Ability Independent Exam: Constitutional; Afebrile, cooperative, alert, not in distress. Eyes- No icterus, , No periorbital swelling Ears- Ext ear normal, hearing normal to conversation. Neck- Midline trachea, supple Respiratory system: Air Entry equal on both sides,consuelo inspiratory crackles, predominant low 2/3. CVS- Rate rhythm regular, S1,S2 heard, no gallop, no rub. Abdomen- Soft nontender abdomen, no organomegaly, no tenderness, no guarding or rigidity, FEED RESEARCH AIDE- AOOx3, moving all extremities, no gross focal deficit noted. Medical - PN: Obj Da - Labs CBC & Chem 7: 12/18/16 08:10 12/18/16 08:10 Labs: Abnormal Lab Results 12/18/16 12/18/16 12/17/16 08:10 08:10 03:56 RBC 3.84 L Hgb 11.4 L Hct 34.6 L 35.9 L RDW 15.8 H 15.5 H Plt Count 463 H 455 H Gran % 90.5 H 90.6 H Lymph % (Auto) 5.4 L 6.6 L Lymph # (Auto) 0.5 L 0.4 L ESR Carbon Dioxide Anion Gap Glucose 343 H Hemoglobin A1c Calcium 8.5 L Phosphorus 2.6 L GGT 101 H AST ALT Alkaline Phosphatase 189 H Lactate Dehydrogenase 261 H C-Reactive Protein Albumin 2.8 L Globulin Albumin/Globulin Ratio 0.8 L Triglycerides Complement C3 Complement C4 12/17/16 12/16/16 12/16/16 03:56 21:51 21:51 RBC Hgb Hct RDW Plt Count Gran % Lymph % (Auto) Lymph # (Auto) ESR Carbon Dioxide 20 L Anion Gap 17.0 H Glucose 217 H Hemoglobin A1c 10.7 H Calcium Phosphorus GGT 122 H AST 44 H ALT 50 H Alkaline Phosphatase 209 H Lactate Dehydrogenase 301 H C-Reactive Protein Albumin 2.6 L Globulin 3.9 H Albumin/Globulin Ratio 0.7 L Triglycerides 155 H Complement C3 226.5 H Complement C4 60.7 H 12/16/16 12/16/16 21:51 21:51 RBC Hgb Hct RDW Plt Count Gran % Lymph % (Auto) Lymph # (Auto) ESR 111 H Carbon Dioxide Anion Gap Glucose Hemoglobin A1c Calcium Phosphorus GGT AST ALT Alkaline Phosphatase Lactate Dehydrogenase C-Reactive Protein 14.4 H Albumin Globulin Albumin/Globulin Ratio Triglycerides Complement C3 Complement C4 Meds: Medications Acetaminophen (Tylenol) 650 mg PO Q6HP PRN PRN Reason: PAIN/FEVER > 101 Hydrocodone Bitart/Acetaminophen ([place] 5/325mg) 1 tab PO Q4HP PRN PRN Reason: Pain Albuterol/Ipratropium (Duoneb) 3 ml NEB Q4HRT [facility] Last Admin: 12/18/16 14:30 Dose: 3 ml Aspirin (Aspirin) 81 mg PO DAILY [facility] Last Admin: 12/18/16 08:13 Dose: 81 mg Colestipol HCl (Colestid) 1 gm PO QID [facility] Last Admin: 12/18/16 14:18 Dose: 1 gm Dextrose (Dextrose 50%) 0 ml IV UD PRN PRN Reason: Hypoglycemia Diagnostic Test (Pha) (Accu-Chek) 1 each FS ACHS [facility] Last Admin: 12/18/16 12:12 Dose: 1 each Glucose (Insta-Glucose) 15 gm PO PRN PRN PRN Reason: Hypoglycemia Heparin Sodium (Porcine) (Heparin) 5,000 unit SQ Q12 [facility] Last Admin: 12/18/16 09:25 Dose: 5,000 unit Levofloxacin (Levaquin) 750 mg in 150 mls @ 100 mls/hr IV DAILY [facility] Stop: 12/22/16 10:29 Last Infusion: 12/18/16 11:00 Dose: Infused Insulin Glargine (Lantus) 80 unit SQ BID [facility] Last Admin: 12/18/16 08:27 Dose: 80 unit Insulin Human Lispro (Humalog) 0 unit SQ ACHS [facility] PRN Reason: Protocol Last Admin: 12/18/16 12:12 Dose: 12 unit Magnesium Hydroxide (Milk Of Magnesia) 30 ml PO DAILYP PRN PRN Reason: Constipation Methocarbamol (Robaxin) 750 mg PO Q6HP PRN PRN Reason: Muscle Spasm Methylprednisolone Sodium Succinate (Solu-Medrol) 62.5 mg IV Q8 [facility] Last Admin: 12/18/16 14:18 Dose: 62.5 mg Naloxone HCl (Narcan) 0.1 mg IV Q2MIN PRN PRN Reason: Opiate Reversal Nortriptyline HCl (Pamelor) 10 mg PO HS [facility] Last Admin: 12/17/16 21:53 Dose: 10 mg Ondansetron HCl (Zofran) 4 mg IV Q4HP PRN PRN Reason: Nausea And Vomiting Pantoprazole Sodium (Protonix) 40 mg PO QAMAC [facility] Last Admin: 12/18/16 07:42 Dose: 40 mg Ropinirole HCl (Requip) 0.75 mg PO HS [facility] Last Admin: 12/17/16 21:55 Dose: 0.75 mg Sertraline HCl (Zoloft) 50 mg PO DAILY [facility] Last Admin: 12/18/16 08:12 Dose: 50 mg Sitagliptin Phosphate (Januvia) 100 mg PO QDAY [facility] Last Admin: 12/18/16 08:12 Dose: 100 mg Sodium Chloride (Saline Flush) 10 ml IV Q8 [facility] Last Admin: 12/18/16 14:19 Dose: 10 ml Medical - PN: A/P - Time Spent With Patient Total time spent is greater than 50% in coordination of care (as documented) at patient's floor/unit and/or counseling patient: - Narrative A/P Narrative: A/P Acute hypoxic Respiratory Failure: Treatment of underlying etiology, supplemental nasal canula 4-5L for now, Place on bipap if declines. abg reviewed, Interstitial Infiltrates: A very wide differential diagnosis, workup pending for autoimmune, fungal etiology, on steroids and levofloxacin continue same, echo is neg, pulm consulted, plan of care reviewed with Dr Guido. . DM: Glucose elevated, increase lantus to 100units bid. high dose sliding scale insulin. HTN hold bp meds for now, resume once bp stable Acute Kidney INjury: Creat is back to baseline Abnl LFt mildly elevated ast, alt and alk phos on admission, but now improved. h/o reflux disease: takes Prilosec, start on pantoprazole for now. DVT hep sq Full code CARb consistent diet.
--- NOTE | 2016-12-18 16:55 | Pulmonology Progress Note ---
Subjective Patient information: Note initiated : 12/18/16 at 4:48 pm Service Date, if different from initiated Date: [] Patient: Irma Craig 66 y/o F admitted on 12/16/16 for shortness of breath, low O2 sat, low bp. Chief Complaint: [Dyspnea] The patient reports feeling a little better today. IS up to 1500ml. labs essentially stable and exam unchanged. Crackles persist on exam, Echo without significant findings. Imp: interstitial inflamatory process etio? Plan continue Levaquinn and steroid. Repeat CXR in AM Tee Guido MD Objective Vital Signs Temp Pulse Pulse Resp BP BP Pulse Ox 12/18/16 15:19 96.7 F L 32 H 123/54 92 12/18/16 14:30 90 18 12/18/16 12:00 96.4 F L 28 H 128/67 94 12/18/16 10:35 77 18 12/18/16 08:22 98.1 F 95 H 20 134/67 93 12/18/16 08:15 93 12/18/16 07:21 76 18 95 12/18/16 06:45 80 18 12/18/16 05:35 77 91 12/18/16 04:00 97.8 F 81 28 H 103/46 93 12/18/16 00:53 96 H 90 12/17/16 23:26 97.0 F 80 26 H 118/51 95 12/17/16 23:11 91 H 118/51 93 12/17/16 22:59 85 26 H 12/17/16 19:30 97.9 F 85 85 26 H 107/55 92 12/17/16 19:29 85 94 12/17/16 19:00 87 107/55 92 12/17/16 18:29 90 91 Intake and Output 12/18/16 12/18/16 12/18/16 05:59 13:59 21:59 Intake Total 200 / 200 1370 / 1370 360 / 360 Output Total 600 / 600 300 / 300 300 / 300 Balance -400 / -400 1070 / 1070 60 / 60 Intake: IV 1150 / 1150 Oral 200 / 200 220 / 220 360 / 360 Output: Void Amount 600 / 600 300 / 300 300 / 300 Other: Meal Lunch Percent of Meal Consumed 100% Feeding Ability Independent Intake & Output: Intake & Output 12/18/16 12/18/16 12/18/16 05:59 13:59 21:59 Intake Total 200 / 200 1370 / 1370 360 / 360 Output Total 600 / 600 300 / 300 300 / 300 Balance -400 / -400 1070 / 1070 60 / 60 Intake: IV 1150 / 1150 Oral 200 / 200 220 / 220 360 / 360 Output: Void Amount 600 / 600 300 / 300 300 / 300 Other: Meal Lunch Percent of Meal Consumed 100% Feeding Ability Independent CBC and BMP: 12/18/16 08:10 12/18/16 08:10 Abnormal lab findings: Abnormal Labs 12/16/16 12/16/16 12/16/16 21:51 21:51 21:51 RBC Hgb Hct RDW Plt Count Gran % Lymph % (Auto) Lymph # (Auto) ESR 111 H Carbon Dioxide Anion Gap Glucose Hemoglobin A1c Calcium Phosphorus GGT AST ALT Alkaline Phosphatase Lactate Dehydrogenase C-Reactive Protein 14.4 H Albumin Globulin Albumin/Globulin Ratio Triglycerides Complement C3 226.5 H Complement C4 60.7 H 12/16/16 12/17/16 12/17/16 21:51 03:56 03:56 RBC Hgb Hct 35.9 L RDW 15.5 H Plt Count 455 H Gran % 90.6 H Lymph % (Auto) 6.6 L Lymph # (Auto) 0.4 L ESR Carbon Dioxide 20 L Anion Gap 17.0 H Glucose 217 H Hemoglobin A1c 10.7 H Calcium Phosphorus GGT 122 H AST 44 H ALT 50 H Alkaline Phosphatase 209 H Lactate Dehydrogenase 301 H C-Reactive Protein Albumin 2.6 L Globulin 3.9 H Albumin/Globulin Ratio 0.7 L Triglycerides 155 H Complement C3 Complement C4 12/18/16 12/18/16 08:10 08:10 RBC 3.84 L Hgb 11.4 L Hct 34.6 L RDW 15.8 H Plt Count 463 H Gran % 90.5 H Lymph % (Auto) 5.4 L Lymph # (Auto) 0.5 L ESR Carbon Dioxide Anion Gap Glucose 343 H Hemoglobin A1c Calcium 8.5 L Phosphorus 2.6 L GGT 101 H AST ALT Alkaline Phosphatase 189 H Lactate Dehydrogenase 261 H C-Reactive Protein Albumin 2.8 L Globulin Albumin/Globulin Ratio 0.8 L Triglycerides Complement C3 Complement C4
[2016-12-18] MEDS: rOPINIRole 0.25 MG TABLET PO SCH (20:12)
[2016-12-18] MEDS: NORTRIPTYLINE 10 MG CAPSULE PO SCH (20:13)
[2016-12-19] MEDS: IPRATROPIUM/ALBUTEROL 3 ML AMPUL.NEB NEB SCH ×6 (02:59→23:10)
[2016-12-19] MEDS: methylPREDNISolone SOD SUCC 125 MG/2 ML VIAL IV SCH ×2 (05:38→14:11)
[2016-12-19] MEDS: 0.9 % SODIUM CHLORIDE 10 ML SYRINGE IV SCH ×4 (05:39→22:00)
[2016-12-19 06:44] LABS: Basophils # (Auto) 0 K/mcL (0.0-0.3); Basophils % (Auto) 0 % (0.0-2.0); Eosinophils # (Auto) 0 K/mcL (0.0-0.7); Eosinophils % (Auto) 0.1 % (0.0-7.0); Granulocytes % (Auto) 90.4 % (38.0-78.0); Lymphocytes # (Auto) 0.6 K/mcL (1.5-4.8); Lymphocytes % (Auto) 5.8 % (15.5-49.0); Mean Cell Volume 89.2 fL (80.0-100.0); Mean Corpuscular HGB Conc 33.8 g/dL (31.0-36.0); Mean Corpuscular Hemoglobin 30.1 pg (26.0-34.0); Monocytes # (Auto) 0.4 K/mcL (0.1-0.9); Monocytes % (Auto) 3.7 % (1.0-12.0); Platelet Count 469 K/mcL (140-440); RBC 3.69 M/mcL (4.00-5.20); Red Cell Distribution Width 15.8 % (11.5-14.5)
[2016-12-19 07:05] LABS: ALT/SGPT 32 U/l (0-40); Albumin 2.8 gm/dL (3.2-5.2); Albumin/Globulin Ratio 0.9 (1.0-2.3); Alkaline Phosphatase 185 U/L (39-117); Bilirubin,Direct < 0.2 mg/dL (0.0-0.3); Blood Urea Nitrogen 22 mg/dl (8-23); Gamma Glutamyl Transpeptidase 97 U/L (5-36); Magnesium 2.1 mg/dL (1.6-2.5)
--- NOTE | 2016-12-19 07:40 | XRay Report ---
INDICATION: Dyspnea. Abnormal chest CT scan TECHNIQUE: PA and lateral upright chest x-ray COMPARISON: Previous chest CT scan dated 12/16/2016. Previous chest x-rays dated 12/13/2016 and 08/21/2015 FINDINGS:No focal pulmonary parenchymal consolidation. Chest CT scan demonstrated diffuse groundglass infiltrates. These are not well visualized on plain radiograph. No new abnormalities. No evidence for congestive heart failure. Paula and mediastinum are negative. No pleural fluid. No interval change IMPRESSION: No acute consolidation. No interval change since 12/13/2016 Interpreted and Authenticated by: Amor Whitmore 12/19/16
[2016-12-19] MEDS: PANTOPRAZOLE 40 MG TABLET PO SCH (07:53)
[2016-12-19] MEDS: INSULIN LISPRO 1 UNIT/0.01 ML UNIT SQ SCH ×4 (07:53→20:36)
--- NOTE | 2016-12-19 08:22 | Pulmonology Progress Note ---
Subjective Patient information: Note initiated : 12/19/16 at 8:17 am Service Date, if different from initiated Date: [] Patient: Irma Craig 66 y/o F admitted on 12/16/16 for shortness of breath, low O2 sat, low bp. Chief Complaint: [] Principal diagnosis: interstitial pulmonary process etiology not precisely defined Pertinent ROS: The patient indicates she is feeling better, She wore her CPAP last night( recent PSG with WILLIAN and need for CPAP). Labs stable and CXR better inspiration. PE crackles persist lungs. IMP: Interstitial inflammatory pulmonary process lungs etiology not precisely defined, clinically stable / improving. Plan: continue current therapy Tee Guido MD Pulmonary Objective Vital Signs Temp Pulse Pulse Resp BP BP BP 12/19/16 07:22 74 16 12/19/16 07:21 77 18 12/19/16 06:30 12/19/16 05:22 73 12/19/16 04:40 96.9 F L 73 24 H 140/73 12/19/16 02:57 71 12/19/16 02:00 12/19/16 01:28 73 134/71 12/19/16 01:20 97.0 F 24 H 134/71 12/19/16 00:26 12/18/16 22:49 76 24 H 12/18/16 22:48 76 24 H 12/18/16 22:26 76 12/18/16 20:52 12/18/16 20:32 86 123/55 12/18/16 20:00 97.0 F 24 H 133/55 12/18/16 19:29 90 12/18/16 19:25 89 22 12/18/16 15:19 96.7 F L 32 H 123/54 12/18/16 15:18 92 H 123/54 12/18/16 14:30 90 18 12/18/16 12:10 88 128/67 12/18/16 12:00 96.4 F L 28 H 128/67 12/18/16 10:35 77 18 12/18/16 08:22 98.1 F 95 H 20 134/67 Pulse Ox 12/19/16 07:22 12/19/16 07:21 94 12/19/16 06:30 96 12/19/16 05:22 90 12/19/16 04:40 92 12/19/16 02:57 92 12/19/16 02:00 89 L 12/19/16 01:28 92 12/19/16 01:20 91 12/19/16 00:26 91 12/18/16 22:49 94 12/18/16 22:48 12/18/16 22:26 94 12/18/16 20:52 89 L 12/18/16 20:32 93 12/18/16 20:00 90 12/18/16 19:29 95 12/18/16 19:25 12/18/16 15:19 92 12/18/16 15:18 92 12/18/16 14:30 12/18/16 12:10 93 12/18/16 12:00 94 12/18/16 10:35 12/18/16 08:22 93 Intake and Output 12/18/16 12/19/16 12/19/16 21:59 05:59 13:59 Intake Total 600 / 600 200 / 200 Output Total 500 / 500 550 / 550 350 / 350 Balance 100 / 100 -350 / -350 -350 / -350 Intake: Oral 600 / 600 200 / 200 Output: Void Amount 500 / 500 550 / 550 250 / 250 Stool 100 / 100 Other: # Bowel Movements 1 Weight 214 lb 3.2 oz Intake & Output: Intake & Output 12/18/16 12/19/16 12/19/16 21:59 05:59 13:59 Intake Total 600 / 600 200 / 200 Output Total 500 / 500 550 / 550 350 / 350 Balance 100 / 100 -350 / -350 -350 / -350 Weight 214 lb 3.2 oz Intake: Oral 600 / 600 200 / 200 Output: Void Amount 500 / 500 550 / 550 250 / 250 Stool 100 / 100 Other: # Bowel Movements 1 CBC and BMP: 12/19/16 04:13 12/19/16 04:13 Abnormal lab findings: Abnormal Labs 12/16/16 12/16/16 12/16/16 21:51 21:51 21:51 RBC Hgb Hct RDW Plt Count Gran % Lymph % (Auto) Gran # Lymph # (Auto) ESR 111 H Carbon Dioxide Anion Gap Glucose Hemoglobin A1c Calcium Phosphorus GGT AST ALT Alkaline Phosphatase Lactate Dehydrogenase C-Reactive Protein 14.4 H Albumin Globulin Albumin/Globulin Ratio Triglycerides Complement C3 226.5 H Complement C4 60.7 H 12/16/16 12/17/16 12/17/16 21:51 03:56 03:56 RBC Hgb Hct 35.9 L RDW 15.5 H Plt Count 455 H Gran % 90.6 H Lymph % (Auto) 6.6 L Gran # Lymph # (Auto) 0.4 L ESR Carbon Dioxide 20 L Anion Gap 17.0 H Glucose 217 H Hemoglobin A1c 10.7 H Calcium Phosphorus GGT 122 H AST 44 H ALT 50 H Alkaline Phosphatase 209 H Lactate Dehydrogenase 301 H C-Reactive Protein Albumin 2.6 L Globulin 3.9 H Albumin/Globulin Ratio 0.7 L Triglycerides 155 H Complement C3 Complement C4 12/18/16 12/18/16 12/19/16 08:10 08:10 04:13 RBC 3.84 L 3.69 L Hgb 11.4 L 11.1 L Hct 34.6 L 32.9 L RDW 15.8 H 15.8 H Plt Count 463 H 469 H Gran % 90.5 H 90.4 H Lymph % (Auto) 5.4 L 5.8 L Gran # 8.8 H Lymph # (Auto) 0.5 L 0.6 L ESR Carbon Dioxide Anion Gap Glucose 343 H Hemoglobin A1c Calcium 8.5 L Phosphorus 2.6 L GGT 101 H AST ALT Alkaline Phosphatase 189 H Lactate Dehydrogenase 261 H C-Reactive Protein Albumin 2.8 L Globulin Albumin/Globulin Ratio 0.8 L Triglycerides Complement C3 Complement C4 12/19/16 04:13 RBC Hgb Hct RDW Plt Count Gran % Lymph % (Auto) Gran # Lymph # (Auto) ESR Carbon Dioxide 21 L Anion Gap Glucose 238 H Hemoglobin A1c Calcium Phosphorus GGT 97 H AST ALT Alkaline Phosphatase 185 H Lactate Dehydrogenase 315 H C-Reactive Protein Albumin 2.8 L Globulin Albumin/Globulin Ratio 0.9 L Triglycerides Complement C3 Complement C4
--- NOTE | 2016-12-19 08:43 | Consultation ---
DATE OF CONSULTATION: 12/17/2016 HISTORY OF PRESENT ILLNESS: The patient is a 66-year-old female who presented to the Emergency Room on 12/16/2016 after approximately 2- to 3-week prodrome of progressing feeling of weakness, shortness of breath, and generally feeling unwell with a dry, nonproductive cough. She had sought outpatient evaluation and had received a course of Augmentin followed by a course of azithromycin, neither of which, in the patient's or her 's opinion, altered the course of her gradual deterioration. She presented to the Emergency Room where evaluation demonstrated a normal white count, elevated inflammatory markers, CT scan of the chest negative for pulmonary embolus but significant for diffuse interstitial alveolar process and she was considered a candidate for admission and further evaluation. The patient is about a 15-pack year smoker having quit in 1985. She states she has not had industrial occupations or exposures. 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 She denies rheumatologic symptom complex or complaint. She denies known cardiac difficulties or dependent edema. She denies unusual pets, plants or birds in the home. She has had some nausea and vomiting. She does not consider herself to be a generally allergic person. 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 Radiographic evaluations including a recent chest x-ray would appear to be clear, prior to the recent chest x-ray would suggest interstitial alveolar process further documented on the CT scan of the chest. She reports previous cholecystectomy. She reports some variable difficulty with looser bowel movements or a more protracted period of time. She saw Dr. Baker for endoscopies in that regard and has had recent referral to the sleep lab. She indicates that she does snore -her is present and agrees with that, and has unrested days. She states a description of a sleep study, which would indicate a split night study with CPAP titration and she indicates she was much more rested from that study than she had been in some time, and she is looking forward to the possibility of using CPAP therapy. Blood cultures from the time of presentation so far are no growth at one day. Extensive additional laboratory evaluation looking for rheumatologic conditions and other are pending at the time of this dictation. PHYSICAL EXAMINATION: GENERAL: The patient is a very pleasant, comfortable-appearing female with shallow, somewhat rapid respirations but in no acute distress. HEAD: Atraumatic, normocephalic. NECK: Supple. LUNGS: Decreased breath sounds throughout with interstitial sounds fci up the chest on both sides, fine and distant sounding. HEART: Regular. S1, S2. No apparent gallop, rub, or jugular venous distention. There is no dependent edema. Initial presentation of BUN and creatine would suggest that she was intravascularly volume-depleted at that time with improvement with IV fluid hydration. ABDOMEN: Soft. Bowel sounds are present and decreased. BONES/JOINTS/EXTREMITIES: Without acute changes. NEUROLOGIC: Grossly nonfocal. LABORATORY DATA: (Available and collected during the course of this hospitalization) Indicates white count of 7.7 on presentation, improved to 6.5 today. Hemoglobin was 11.8 and today 12.0. Total white count showed 86 segs, no bands, 6 leuks, 6 monos and 2 eos. Erythrocyte sedimentation rate is markedly elevated at 111. There are mild elevations of liver enzymes. Troponin is negative on one determination. C-reactive protein is elevated at 14.4. Albumin is depressed at 2.8 and subsequently 2.6. Urinalysis is without significant abnormalities. A collagen vascular disease panel as well as antibodies for blastomycosis, coccidial mycosis, hepatitis, histoplasmosis, screen for HIV and aspergillus are all pending at the time of dictation. RADIOGRAPHIC STUDIES: Review of CT scan and chest x-ray are consistent with written reports to my eye. EKG is without acute changes. IMPRESSION AND PLAN: Gradually progressive, presumably inflammatory lesion of the interstitium of the lung with hypoxia and dyspnea. Etiology of this process is clearly undefined at this point in time in broad coverage with antibiotic and steroids is prudent. Fortunately the patient has a sense that she is improving with her current therapeutic interventions. Given her FI02 requirements and the need for sedation and such for bronchoalveolar lavage and transbronchial lung biopsy, I would prefer to hold that off lest we precipitate more illness in the patient at this point in her clinical course. We will review in that regard and discuss the followup. Of note, inadvertently omitted above, the patient does have a hemoglobin A1C of 10.7, which would certainly put her in an immunocompromised state for some of the more unusual diseases being evaluated at this time. I discussed with Dr. Archuleta whom I think for the opportunity to participate in the care of this seriously ill lady. MARCI:salas Job ID: [id number] Doc ID: [id number] Tee Guido MD
[2016-12-19] MEDS: HEPARIN 5,000 UNIT/ML VIAL SQ SCH ×2 (09:29→20:36)
[2016-12-19] MEDS: SERTRALINE 50 MG TABLET PO SCH (09:29)
[2016-12-19] MEDS: sitaGLIPtin 50 MG TABLET PO SCH (09:29)
[2016-12-19] MEDS: COLESTIPOLL 1 GM TABLET PO SCH ×4 (09:30→20:36)
[2016-12-19] MEDS: ASPIRIN 81 MG TAB.CHEW PO SCH (09:30)
[2016-12-19] MEDS: LEVOFLOXACIN 750 MG/150 ML BAG IV SCH (09:31)
[2016-12-19] MEDS: INSULIN GLARGINE, HUMAN 1 UNIT/0.01 ML SQ SCH ×2 (09:40→20:36)
[2016-12-19] MEDS: BENZOCAINE/MENTHOL 1 LOZENGE PO PRN (11:39)
[2016-12-19] MEDS: CARVEDILOL 6.25 MG TABLET PO SCH ×2 (17:55→20:39)
--- NOTE | 2016-12-19 19:12 | Internal Med Progress Note ---
Medical - PN: Subj Patient information: Note initiated : 12/19/16 at 7:10 pm Service Date, if different from initiated Date: [] Patient: Irma Craig 66 y/o F admitted on 12/16/16 for SOB,Low O2 sat, Low BP/Hypoxic Respiratory Failure. Chief Complaint: [] Interval history: Ms. Craig is a 66 year old Female with h/o smoking in the past presents to the ER with complaints of shortness of breath, cough, not feeling well, fever, headache and nausea/ vomiting x 2 weeks The patient was alright approximately 2 weeks ago, when she started to have some headache, with some photophobia, she also noted difficulty in breathing and cough, she had a low grade temperature tmax as per was 101. There was ? sinus symptoms. the cough was dry without sputum associated with shortness of breath, at rest and activity. She also thought there may be some wheezing. The patient symptoms worsened after a few days and therefore she saw Dr Loza, who started the patient on Augmentin. The patient did take the medication but did not have much relief. The patients symptoms so she went back to see the doctor. This time her oxygen sats were low in the clinic but she responded to albuterol She was started on z pack and albuterol along with some cough medication. Plan was also to use medrol dose pack, but I did not see any prescription for same. The patient took her meds but there was no improvement in her symptoms. She was supposed to see her pcp next week but since her condition worsend,and that she had nausea and vomiting, with very little pp intake she was asked to come to the ER for further eval. In the ER she was hypoxic and tachypenic, she had normal wbc count, slight bump in her creat from 0.8 ti 1.2, elevated neurtophils but normal eosinophils, mildly elevated bnp, neg ekg for acute ischemia and neg troponin. She underwent a CT Scan which shows a diffuse infiltrative disease ARDS vs Intersitial PNA vs Pulm Hemorrhage, vs ILD vs inflammatory disease vs atypical pna. Neg for PE The patient was admitted to the hospital for further management The patient denies any h/o chest pains, no edema feet, no sick contacts, no travel or camping, no pets or contact with birds. She has strong history of smoking but PFT done in 2016 was reported as normal. CXR in past normal, CT abdomen 2014 showed normal lung architecture. The patient has h/o smoking in the past but has quit in . 12/17: The patient seen examined, no acute ovenight events, her oxygen requirement went up from 3L to 6L this am, and now is being weaned down, she has no new concerns or complaints to report, does have shortness of breath and cough which is still bothering her. 12/18: Patient seen examined, no acute overnight events, echo done shows normal lvef, pt feels somewhat better, but still on 4L oxygen, desaturates easily with minimal movement. Pulm joseph appreciated. Await autoimmune workup for now. Plan of care reviewed with the patient and her . 12/19: pt seen examined, no acute overnight events, still on 3-4L oxygen, but breathing is better,cough better. X Ray chest is unchanged from admission. still on steroids and levofloxacin. labs for autoimmune and fungal disease is pending. Pulmonary following, no plan for lung biopsy at this time. Pertinent ROS: Denies headache, dizziness Denies chest pain, palpitations cough and shortness of breath improving Denies abdominal pain, nausea or vomiting. - Constitutional Vitals: Vital Signs Temp Pulse Resp BP Pulse Ox 97.7 F 82 16 147/77 98 12/19/16 15:59 12/19/16 19:08 12/19/16 19:08 12/19/16 15:59 12/19/16 19:08 Period Temp Pulse Resp BP Sys/Waldron Pulse Ox Last 24 Hr 96.9 F-97.7 F 70-90 16-24 122-147/55-77 89-98 Intake and Output 12/19/16 12/19/16 12/19/16 05:59 13:59 21:59 Intake Total 200 / 200 970 / 970 880 / 880 Output Total 550 / 550 250 / 250 400 / 400 Balance -350 / -350 720 / 720 480 / 480 Intake & Output: Intake & Output 12/19/16 12/19/16 12/19/16 05:59 13:59 21:59 Intake Total 200 / 200 970 / 970 880 / 880 Output Total 550 / 550 250 / 250 400 / 400 Balance -350 / -350 720 / 720 480 / 480 Intake: IV 150 / 150 Oral 200 / 200 820 / 820 880 / 880 Output: Void Amount 550 / 550 250 / 250 400 / 400 Other: Meal Lunch Dinner Percent of Meal Consumed 100% 100% Feeding Ability Independent Independent # Voids 1 # Bowel Movements 1 1 General appearance: cooperative, no acute distress - Head Head exam: Present: atraumatic, normal inspection - Eye Eye exam: Present: PERRL - Neck Neck exam: Present: normal inspection. Absent: thyromegaly - Respiratory Respiratory exam: Present: decreased breath sounds. Absent: accessory muscle use Additional comments: consuelo crackles at bases, inspiratory - Cardiovascular Cardiovascular exam: Present: normal rate and rhythm, +S1, +S2 - GI/Abdominal GI/Abdominal exam: Present: normal bowel sounds, soft - Neurological Exam Neurological exam: Present: alert, CN II-XII intact, oriented X3. Absent: motor sensory deficit Medical - PN: Obj Da - Labs CBC & Chem 7: 12/19/16 04:13 12/19/16 04:13 Labs: Abnormal Lab Results 12/19/16 12/19/16 12/18/16 04:13 04:13 08:10 RBC 3.69 L Hgb 11.1 L Hct 32.9 L RDW 15.8 H Plt Count 469 H Gran % 90.4 H Lymph % (Auto) 5.8 L Gran # 8.8 H Lymph # (Auto) 0.6 L ESR Carbon Dioxide 21 L Anion Gap Glucose 238 H 343 H Hemoglobin A1c Calcium 8.5 L Phosphorus 2.6 L GGT 97 H 101 H AST ALT Alkaline Phosphatase 185 H 189 H Lactate Dehydrogenase 315 H 261 H C-Reactive Protein Albumin 2.8 L 2.8 L Globulin Albumin/Globulin Ratio 0.9 L 0.8 L Triglycerides Complement C3 Complement C4 12/18/16 12/17/16 12/17/16 08:10 03:56 03:56 RBC 3.84 L Hgb 11.4 L Hct 34.6 L 35.9 L RDW 15.8 H 15.5 H Plt Count 463 H 455 H Gran % 90.5 H 90.6 H Lymph % (Auto) 5.4 L 6.6 L Gran # Lymph # (Auto) 0.5 L 0.4 L ESR Carbon Dioxide 20 L Anion Gap 17.0 H Glucose 217 H Hemoglobin A1c Calcium Phosphorus GGT 122 H AST 44 H ALT 50 H Alkaline Phosphatase 209 H Lactate Dehydrogenase 301 H C-Reactive Protein Albumin 2.6 L Globulin 3.9 H Albumin/Globulin Ratio 0.7 L Triglycerides 155 H Complement C3 Complement C4 12/16/16 12/16/16 12/16/16 21:51 21:51 21:51 RBC Hgb Hct RDW Plt Count Gran % Lymph % (Auto) Gran # Lymph # (Auto) ESR Carbon Dioxide Anion Gap Glucose Hemoglobin A1c 10.7 H Calcium Phosphorus GGT AST ALT Alkaline Phosphatase Lactate Dehydrogenase C-Reactive Protein 14.4 H Albumin Globulin Albumin/Globulin Ratio Triglycerides Complement C3 226.5 H Complement C4 60.7 H 12/16/16 21:51 RBC Hgb Hct RDW Plt Count Gran % Lymph % (Auto) Gran # Lymph # (Auto) ESR 111 H Carbon Dioxide Anion Gap Glucose Hemoglobin A1c Calcium Phosphorus GGT AST ALT Alkaline Phosphatase Lactate Dehydrogenase C-Reactive Protein Albumin Globulin Albumin/Globulin Ratio Triglycerides Complement C3 Complement C4 Meds: Medications Acetaminophen (Tylenol) 650 mg PO Q6HP PRN PRN Reason: PAIN/FEVER > 101 Hydrocodone Bitart/Acetaminophen ([place] 5/325mg) 1 tab PO Q4HP PRN PRN Reason: Pain Albuterol/Ipratropium (Duoneb) 3 ml NEB Q4HRT [facility] Last Admin: 12/19/16 19:07 Dose: 3 ml Aspirin (Aspirin) 81 mg PO DAILY [facility] Last Admin: 12/19/16 09:30 Dose: 81 mg Carvedilol (Coreg) 12.5 mg PO BID [facility] Last Admin: 12/19/16 17:55 Dose: 12.5 mg Colestipol HCl (Colestid) 1 gm PO QID [facility] Last Admin: 12/19/16 17:54 Dose: 1 gm Dextrose (Dextrose 50%) 0 ml IV UD PRN PRN Reason: Hypoglycemia Diagnostic Test (Pha) (Accu-Chek) 1 each FS ACHS [facility] Last Admin: 12/19/16 16:53 Dose: 1 each Glucose (Insta-Glucose) 15 gm PO PRN PRN PRN Reason: Hypoglycemia Heparin Sodium (Porcine) (Heparin) 5,000 unit SQ Q12 [facility] Last Admin: 12/19/16 09:29 Dose: 5,000 unit Levofloxacin (Levaquin) 750 mg in 150 mls @ 100 mls/hr IV DAILY [facility] Stop: 12/22/16 10:29 Last Infusion: 12/19/16 11:15 Dose: Infused Insulin Glargine (Lantus) 110 unit SQ BID [facility] Insulin Human Lispro (Humalog) 0 unit SQ ACHS [facility] PRN Reason: Protocol Last Admin: 12/19/16 16:52 Dose: 9 unit Magnesium Hydroxide (Milk Of Magnesia) 30 ml PO DAILYP PRN PRN Reason: Constipation Methocarbamol (Robaxin) 750 mg PO Q6HP PRN PRN Reason: Muscle Spasm Methylprednisolone Sodium Succinate (Solu-Medrol) 62.5 mg IV Q8 [facility] Last Admin: 12/19/16 14:11 Dose: 62.5 mg Naloxone HCl (Narcan) 0.1 mg IV Q2MIN PRN PRN Reason: Opiate Reversal Nortriptyline HCl (Pamelor) 10 mg PO HS [facility] Last Admin: 12/18/16 20:13 Dose: 10 mg Ondansetron HCl (Zofran) 4 mg IV Q4HP PRN PRN Reason: Nausea And Vomiting Pantoprazole Sodium (Protonix) 40 mg PO QAMAC [facility] Last Admin: 12/19/16 07:53 Dose: 40 mg Ropinirole HCl (Requip) 0.75 mg PO [facility] Last Admin: 12/18/16 20:12 Dose: 0.75 mg Sertraline HCl (Zoloft) 50 mg PO DAILY [facility] Last Admin: 12/19/16 09:29 Dose: 50 mg Sitagliptin Phosphate (Januvia) 100 mg PO QDAY [facility] Last Admin: 12/19/16 09:29 Dose: 100 mg Sodium Chloride (Saline Flush) 10 ml IV Q8 [facility] Last Admin: 12/19/16 14:10 Dose: 10 ml Throat Lozenges (Cepacol) 1 lozenge PO PRN PRN PRN Reason: Sore Throat Last Admin: 12/19/16 11:39 Dose: 1 lozenge Medical - PN: A/P - Time Spent With Patient Total time spent is greater than 50% in coordination of care (as documented) at patient's floor/unit and/or counseling patient: - Narrative A/P Narrative: A/P Acute hypoxic Respiratory Failure: Treatment of underlying etiology, supplemental nasal canula 3-4 for now, bipap (for brook) at night Interstitial Infiltrates: A very wide differential diagnosis, workup pending for autoimmune, fungal etiology, on steroids and levofloxacin continue same, echo is neg, pulm consulted, plan of care reviewed with Dr Guido. . DM: Glucose elevated, increase lantus to 110units bid. high dose sliding scale insulin. HTN hold bp meds for now, resume once bp stable, coregs started today. Acute Kidney INjury: Creat is back to baseline Abnl LFt mildly elevated ast, alt and alk phos on admission, but now improved. h/o reflux disease: takes Prilosec, start on pantoprazole for now. DVT hep sq Full code CARb consistent diet.
[2016-12-19] MEDS: NORTRIPTYLINE 10 MG CAPSULE PO SCH (20:35)
[2016-12-19] MEDS: rOPINIRole 0.25 MG TABLET PO SCH (20:35)
[2016-12-20] MEDS: IPRATROPIUM/ALBUTEROL 3 ML AMPUL.NEB NEB SCH ×6 (03:02→22:58)
[2016-12-20] MEDS: methylPREDNISolone SOD SUCC 125 MG/2 ML VIAL IV SCH ×3 (03:03→14:23)
[2016-12-20 06:11] LABS: Basophils # (Auto) 0 K/mcL (0.0-0.3); Basophils % (Auto) 0 % (0.0-2.0); Eosinophils # (Auto) 0 K/mcL (0.0-0.7); Eosinophils % (Auto) 0.1 % (0.0-7.0); Granulocytes % (Auto) 87.6 % (38.0-78.0); Lymphocytes # (Auto) 0.6 K/mcL (1.5-4.8); Lymphocytes % (Auto) 7.6 % (15.5-49.0); Mean Cell Volume 88.7 fL (80.0-100.0); Mean Corpuscular HGB Conc 33.4 g/dL (31.0-36.0); Mean Corpuscular Hemoglobin 29.6 pg (26.0-34.0); Monocytes # (Auto) 0.4 K/mcL (0.1-0.9); Monocytes % (Auto) 4.7 % (1.0-12.0); Platelet Count 444 K/mcL (140-440); Red Cell Distribution Width 16.2 % (11.5-14.5)
[2016-12-20 06:29] LABS: ALT/SGPT 32 U/l (0-40); Albumin 2.8 gm/dL (3.2-5.2); Alkaline Phosphatase 177 U/L (39-117); Bilirubin,Direct < 0.2 mg/dL (0.0-0.3); Blood Urea Nitrogen 24 mg/dl (8-23); Gamma Glutamyl Transpeptidase 108 U/L (5-36); Uric Acid 2.8 mg/dL (2.5-8.0)
[2016-12-20] MEDS: 0.9 % SODIUM CHLORIDE 10 ML SYRINGE IV SCH ×3 (06:56→22:00)
[2016-12-20] MEDS: INSULIN LISPRO 1 UNIT/0.01 ML UNIT SQ SCH ×4 (07:08→20:41)
[2016-12-20] MEDS: PANTOPRAZOLE 40 MG TABLET PO SCH (07:26)
--- NOTE | 2016-12-20 08:25 | Pulmonology Progress Note ---
Subjective Patient information: Note initiated : 12/20/16 at 8:20 am Service Date, if different from initiated Date: [] Patient: Irma Craig 66 y/o F admitted on 12/16/16 for SOB,Low O2 sat, Low BP/Hypoxic Respiratory Failure. Chief Complaint: [Cough and SOB The patient reports IS still 1500 ml. Cough persists with deep breathing , non- productive. Denies other changes. Reports used CPAP last night to good effect , woke feeling more alert today. Labs without new findings today. IMP: interstitial inflammatory process etiology undefined. REC: if CRP and ESR improved (ordered for AM) I suggest halving steroid dose tomorrow and observe for changes] Principal diagnosis: interstitial pulmonary process etiology not precisely defined Objective Vital Signs Temp Pulse Pulse Resp BP BP BP 12/20/16 07:37 12/20/16 07:36 66 16 12/20/16 07:33 72 16 12/20/16 03:39 96.5 F L 20 141/70 12/20/16 00:00 96.1 F L 20 128/57 12/19/16 23:10 80 16 12/19/16 20:00 96.2 F L 20 119/77 12/19/16 19:08 82 16 12/19/16 18:40 83 12/19/16 15:59 97.7 F 20 147/77 12/19/16 15:20 70 16 12/19/16 11:48 70 16 12/19/16 11:25 97.0 F 20 136/70 Pulse Ox 12/20/16 07:37 98 12/20/16 07:36 98 12/20/16 07:33 12/20/16 03:39 92 12/20/16 00:00 94 12/19/16 23:10 93 12/19/16 20:00 93 12/19/16 19:08 98 12/19/16 18:40 93 12/19/16 15:59 94 12/19/16 15:20 12/19/16 11:48 12/19/16 11:25 95 Intake and Output 12/19/16 12/20/16 12/20/16 21:59 05:59 13:59 Intake Total 880 / 880 590 / 590 Output Total 700 / 700 700 / 700 Balance 180 / 180 -110 / -110 Intake: Oral 880 / 880 590 / 590 Output: Urine Catheter Amount 300 / 300 Void Amount 700 / 700 400 / 400 Other: Meal Dinner Percent of Meal Consumed 100% Feeding Ability Independent # Bowel Movements 1 Weight 223 lb 8 oz Intake & Output: Intake & Output 12/19/16 12/20/16 12/20/16 21:59 05:59 13:59 Intake Total 880 / 880 590 / 590 Output Total 700 / 700 700 / 700 Balance 180 / 180 -110 / -110 Weight 223 lb 8 oz Intake: Oral 880 / 880 590 / 590 Output: Urine Catheter Amount 300 / 300 Void Amount 700 / 700 400 / 400 Other: Meal Dinner Percent of Meal Consumed 100% Feeding Ability Independent # Bowel Movements 1 CBC and BMP: 12/20/16 04:40 12/20/16 04:40 Abnormal lab findings: Abnormal Labs 12/16/16 12/16/16 12/16/16 21:51 21:51 21:51 RBC Hgb Hct RDW Plt Count Gran % Lymph % (Auto) Gran # Lymph # (Auto) ESR 111 H Carbon Dioxide Anion Gap BUN Glucose Hemoglobin A1c Calcium Phosphorus GGT AST ALT Alkaline Phosphatase Lactate Dehydrogenase C-Reactive Protein 14.4 H Total Protein Albumin Globulin Albumin/Globulin Ratio Triglycerides Complement C3 226.5 H Complement C4 60.7 H 12/16/16 12/17/16 12/17/16 21:51 03:56 03:56 RBC Hgb Hct 35.9 L RDW 15.5 H Plt Count 455 H Gran % 90.6 H Lymph % (Auto) 6.6 L Gran # Lymph # (Auto) 0.4 L ESR Carbon Dioxide 20 L Anion Gap 17.0 H BUN Glucose 217 H Hemoglobin A1c 10.7 H Calcium Phosphorus GGT 122 H AST 44 H ALT 50 H Alkaline Phosphatase 209 H Lactate Dehydrogenase 301 H C-Reactive Protein Total Protein Albumin 2.6 L Globulin 3.9 H Albumin/Globulin Ratio 0.7 L Triglycerides 155 H Complement C3 Complement C4 12/18/16 12/18/16 12/19/16 08:10 08:10 04:13 RBC 3.84 L 3.69 L Hgb 11.4 L 11.1 L Hct 34.6 L 32.9 L RDW 15.8 H 15.8 H Plt Count 463 H 469 H Gran % 90.5 H 90.4 H Lymph % (Auto) 5.4 L 5.8 L Gran # 8.8 H Lymph # (Auto) 0.5 L 0.6 L ESR Carbon Dioxide Anion Gap BUN Glucose 343 H Hemoglobin A1c Calcium 8.5 L Phosphorus 2.6 L GGT 101 H AST ALT Alkaline Phosphatase 189 H Lactate Dehydrogenase 261 H C-Reactive Protein Total Protein Albumin 2.8 L Globulin Albumin/Globulin Ratio 0.8 L Triglycerides Complement C3 Complement C4 12/19/16 12/20/16 12/20/16 04:13 04:40 04:40 RBC 3.70 L Hgb 10.9 L Hct 32.8 L RDW 16.2 H Plt Count 444 H Gran % 87.6 H Lymph % (Auto) 7.6 L Gran # Lymph # (Auto) 0.6 L ESR Carbon Dioxide 21 L Anion Gap BUN 24 H Glucose 238 H 158 H Hemoglobin A1c Calcium Phosphorus GGT 97 H 108 H AST ALT Alkaline Phosphatase 185 H 177 H Lactate Dehydrogenase 315 H 296 H C-Reactive Protein Total Protein 5.7 L Albumin 2.8 L 2.8 L Globulin Albumin/Globulin Ratio 0.9 L Triglycerides 210 H Complement C3 Complement C4
[2016-12-20] MEDS: ASPIRIN 81 MG TAB.CHEW PO SCH (09:03)
[2016-12-20] MEDS: HEPARIN 5,000 UNIT/ML VIAL SQ SCH ×2 (09:03→20:40)
[2016-12-20] MEDS: SERTRALINE 50 MG TABLET PO SCH (09:03)
[2016-12-20] MEDS: CARVEDILOL 6.25 MG TABLET PO SCH ×2 (09:03→20:38)
[2016-12-20] MEDS: INSULIN GLARGINE, HUMAN 1 UNIT/0.01 ML SQ SCH ×2 (09:10→20:41)
[2016-12-20] MEDS: sitaGLIPtin 50 MG TABLET PO SCH (09:14)
[2016-12-20] MEDS: LEVOFLOXACIN 750 MG/150 ML BAG IV SCH (09:49)
[2016-12-20] MEDS: COLESTIPOLL 1 GM TABLET PO SCH ×4 (10:35→20:38)
--- NOTE | 2016-12-20 10:36 | Internal Med Progress Note ---
Medical - PN: Subj Patient information: Note initiated : 12/20/16 at 10:34 am Service Date, if different from initiated Date: [] Patient: Irma Craig 66 y/o F admitted on 12/16/16 for SOB,Low O2 sat, Low BP/Hypoxic Respiratory Failure. Chief Complaint: [] Interval history: Ms. Craig is a 66 year old Female with h/o smoking in the past presents to the ER with complaints of shortness of breath, cough, not feeling well, fever, headache and nausea/ vomiting x 2 weeks The patient was alright approximately 2 weeks ago, when she started to have some headache, with some photophobia, she also noted difficulty in breathing and cough, she had a low grade temperature tmax as per was 101. There was ? sinus symptoms. the cough was dry without sputum associated with shortness of breath, at rest and activity. She also thought there may be some wheezing. The patient symptoms worsened after a few days and therefore she saw Dr Loza, who started the patient on Augmentin. The patient did take the medication but did not have much relief. The patients symptoms so she went back to see the doctor. This time her oxygen sats were low in the clinic but she responded to albuterol She was started on z pack and albuterol along with some cough medication. Plan was also to use medrol dose pack, but I did not see any prescription for same. The patient took her meds but there was no improvement in her symptoms. She was supposed to see her pcp next week but since her condition worsend,and that she had nausea and vomiting, with very little pp intake she was asked to come to the ER for further eval. In the ER she was hypoxic and tachypenic, she had normal wbc count, slight bump in her creat from 0.8 ti 1.2, elevated neurtophils but normal eosinophils, mildly elevated bnp, neg ekg for acute ischemia and neg troponin. She underwent a CT Scan which shows a diffuse infiltrative disease ARDS vs Intersitial PNA vs Pulm Hemorrhage, vs ILD vs inflammatory disease vs atypical pna. Neg for PE The patient was admitted to the hospital for further management The patient denies any h/o chest pains, no edema feet, no sick contacts, no travel or camping, no pets or contact with birds. She has strong history of smoking but PFT done in 2016 was reported as normal. CXR in past normal, CT abdomen 2014 showed normal lung architecture. The patient has h/o smoking in the past but has quit in . 12/17: The patient seen examined, no acute ovenight events, her oxygen requirement went up from 3L to 6L this am, and now is being weaned down, she has no new concerns or complaints to report, does have shortness of breath and cough which is still bothering her. 12/18: Patient seen examined, no acute overnight events, echo done shows normal lvef, pt feels somewhat better, but still on 4L oxygen, desaturates easily with minimal movement. Pulm joseph appreciated. Await autoimmune workup for now. Plan of care reviewed with the patient and her . 12/19: pt seen examined, no acute overnight events, still on 3-4L oxygen, but breathing is better,cough better. X Ray chest is unchanged from admission. still on steroids and levofloxacin. labs for autoimmune and fungal disease is pending. Pulmonary following, no plan for lung biopsy at this time. 12/20-atient doing well. No overnight events. Denies fever chills nausea vomiting or concerns per nursing staff.n 3 L oxygen. mproving SOB. Labs pending. On steroids. Pulmonology recommends lowering doses of steroids to half in 24 hours. Echocardiogram unremarkable - Constitutional Vitals: Vital Signs Temp Pulse Resp BP Pulse Ox 96.5 F L 66 16 141/70 98 12/20/16 03:39 12/20/16 07:36 12/20/16 07:36 12/20/16 03:39 12/20/16 07:37 Period Temp Pulse Resp BP Sys/Waldron Pulse Ox Last 24 Hr 96.1 F-97.7 F 66-83 16-20 119-147/57-77 92-98 Intake and Output 12/19/16 12/20/16 12/20/16 21:59 05:59 13:59 Intake Total 880 / 880 590 / 590 300 / 300 Output Total 700 / 700 700 / 700 200 / 200 Balance 180 / 180 -110 / -110 100 / 100 Weight 223 lb 8 oz Intake & Output: Intake & Output 12/19/16 12/20/16 12/20/16 21:59 05:59 13:59 Intake Total 880 / 880 590 / 590 300 / 300 Output Total 700 / 700 700 / 700 200 / 200 Balance 180 / 180 -110 / -110 100 / 100 Weight 223 lb 8 oz Intake: Oral 880 / 880 590 / 590 300 / 300 Output: Urine Catheter Amount 300 / 300 Void Amount 700 / 700 400 / 400 200 / 200 Other: Meal Dinner Breakfast Percent of Meal Consumed 100% 100% Feeding Ability Independent Independent # Bowel Movements 1 General appearance: cooperative, no acute distress Exam: lert oriented minimally labored breathing on 3 L oxygen Nondistended abdomen obese no pallor Medical - PN: Obj Da - Labs CBC & Chem 7: 12/20/16 04:40 12/20/16 04:40 Labs: Abnormal Lab Results 12/20/16 12/20/16 12/19/16 04:40 04:40 04:13 RBC 3.70 L Hgb 10.9 L Hct 32.8 L RDW 16.2 H Plt Count 444 H Gran % 87.6 H Lymph % (Auto) 7.6 L Gran # Lymph # (Auto) 0.6 L Carbon Dioxide 21 L BUN 24 H Glucose 158 H 238 H Calcium Phosphorus GGT 108 H 97 H Alkaline Phosphatase 177 H 185 H Lactate Dehydrogenase 296 H 315 H Total Protein 5.7 L Albumin 2.8 L 2.8 L Albumin/Globulin Ratio 0.9 L Triglycerides 210 H 12/19/16 12/18/16 12/18/16 04:13 08:10 08:10 RBC 3.69 L 3.84 L Hgb 11.1 L 11.4 L Hct 32.9 L 34.6 L RDW 15.8 H 15.8 H Plt Count 469 H 463 H Gran % 90.4 H 90.5 H Lymph % (Auto) 5.8 L 5.4 L Gran # 8.8 H Lymph # (Auto) 0.6 L 0.5 L Carbon Dioxide BUN Glucose 343 H Calcium 8.5 L Phosphorus 2.6 L GGT 101 H Alkaline Phosphatase 189 H Lactate Dehydrogenase 261 H Total Protein Albumin 2.8 L Albumin/Globulin Ratio 0.8 L Triglycerides Meds: Medications Acetaminophen (Tylenol) 650 mg PO Q6HP PRN PRN Reason: PAIN/FEVER > 101 Hydrocodone Bitart/Acetaminophen ([place] 5/325mg) 1 tab PO Q4HP PRN PRN Reason: Pain Albuterol/Ipratropium (Duoneb) 3 ml NEB Q4HRT [facility] Last Admin: 12/20/16 07:07 Dose: 3 ml Aspirin (Aspirin) 81 mg PO DAILY [facility] Last Admin: 12/20/16 09:03 Dose: 81 mg Carvedilol (Coreg) 12.5 mg PO BID [facility] Last Admin: 12/20/16 09:03 Dose: 12.5 mg Colestipol HCl (Colestid) 1 gm PO QID [facility] Last Admin: 12/19/16 20:36 Dose: 1 gm Dextrose (Dextrose 50%) 0 ml IV UD PRN PRN Reason: Hypoglycemia Diagnostic Test (Pha) (Accu-Chek) 1 each FS ACHS [facility] Last Admin: 12/20/16 07:07 Dose: 1 each Glucose (Insta-Glucose) 15 gm PO PRN PRN PRN Reason: Hypoglycemia Heparin Sodium (Porcine) (Heparin) 5,000 unit SQ Q12 [facility] Last Admin: 12/20/16 09:03 Dose: 5,000 unit Levofloxacin (Levaquin) 750 mg in 150 mls @ 100 mls/hr IV DAILY [facility] Stop: 12/22/16 10:29 Last Admin: 12/20/16 09:49 Dose: 100 mls/hr Insulin Glargine (Lantus) 110 unit SQ BID [facility] Last Admin: 12/20/16 09:10 Dose: 110 unit Insulin Human Lispro (Humalog) 0 unit SQ ACHS [facility] PRN Reason: Protocol Last Admin: 12/20/16 07:08 Dose: Not Given Magnesium Hydroxide (Milk Of Magnesia) 30 ml PO DAILYP PRN PRN Reason: Constipation Methocarbamol (Robaxin) 750 mg PO Q6HP PRN PRN Reason: Muscle Spasm Methylprednisolone Sodium Succinate (Solu-Medrol) 62.5 mg IV Q8 [facility] Stop: 12/21/16 06:00 Last Admin: 12/20/16 06:55 Dose: 62.5 mg Methylprednisolone Sodium Succinate (Solu-Medrol) 40 mg IV Q12 [facility] Naloxone HCl (Narcan) 0.1 mg IV Q2MIN PRN PRN Reason: Opiate Reversal Nortriptyline HCl (Pamelor) 10 mg PO HS [facility] Last Admin: 12/19/16 20:35 Dose: 10 mg Ondansetron HCl (Zofran) 4 mg IV Q4HP PRN PRN Reason: Nausea And Vomiting Pantoprazole Sodium (Protonix) 40 mg PO QAMAC [facility] Last Admin: 12/20/16 07:26 Dose: 40 mg Ropinirole HCl (Requip) 0.75 mg PO HS [facility] Last Admin: 12/19/16 20:35 Dose: 0.75 mg Sertraline HCl (Zoloft) 50 mg PO DAILY [facility] Last Admin: 12/20/16 09:03 Dose: 50 mg Sitagliptin Phosphate (Januvia) 100 mg PO QDAY [facility] Last Admin: 12/20/16 09:14 Dose: 100 mg Sodium Chloride (Saline Flush) 10 ml IV Q8 [facility] Last Admin: 12/20/16 06:56 Dose: 10 ml Throat Lozenges (Cepacol) 1 lozenge PO PRN PRN PRN Reason: Sore Throat Last Admin: 12/19/16 11:39 Dose: 1 lozenge Medical - PN: A/P - Time Spent With Patient Total time spent is greater than 50% in coordination of care (as documented) at patient's floor/unit and/or counseling patient: 25 - 35 minutes - Narrative A/P Narrative: A/P * Acute hypoxic Respiratory Failure: on nasal cannula oxygen. Continued improvement noted on steroids * Interstitial pneumonia. Unclear etiology. Pulmonology on board with extensive immunological workup pending. On high-dose steroid. Overall he recommendsloading dose to half in 24 hours. continue levofloxacinfor atypical organism coverage * DM: Glucose elevated in light of steroids,continue lantus to 110units bid. high dose sliding scale insulin. a.m. sugars 158 * HTN -on Coreg. Systolics at home * Acute Kidney INjury: resolved * Abnl LFt -normalized * h/o reflux disease: continue PPI * DVT hep sq * Full code
[2016-12-20] MEDS: rOPINIRole 0.25 MG TABLET PO SCH (20:40)
[2016-12-20] MEDS: NORTRIPTYLINE 10 MG CAPSULE PO SCH (20:40)
[2016-12-21] MEDS: methylPREDNISolone SOD SUCC 125 MG/2 ML VIAL IV SCH ×3 (00:12→21:09)
[2016-12-21] MEDS ORDERED: methylPREDNISolone SOD SUCC 125 MG/2 ML VIAL ONE (00:13)
[2016-12-21] MEDS: IPRATROPIUM/ALBUTEROL 3 ML AMPUL.NEB NEB SCH ×6 (03:33→23:22)
[2016-12-21] MEDS: PANTOPRAZOLE 40 MG TABLET PO SCH (07:21)
[2016-12-21] MEDS: INSULIN LISPRO 1 UNIT/0.01 ML UNIT SQ SCH ×4 (07:22→21:08)
[2016-12-21 07:44] LABS: Basophils # (Auto) 0 K/mcL (0.0-0.3); Basophils % (Auto) 0.1 % (0.0-2.0); Eosinophils # (Auto) 0 K/mcL (0.0-0.7); Eosinophils % (Auto) 0 % (0.0-7.0); Granulocytes % (Auto) 88.1 % (38.0-78.0); Lymphocytes # (Auto) 0.6 K/mcL (1.5-4.8); Lymphocytes % (Auto) 6.5 % (15.5-49.0); Mean Cell Volume 88.3 fL (80.0-100.0); Mean Corpuscular HGB Conc 33.1 g/dL (31.0-36.0); Mean Corpuscular Hemoglobin 29.2 pg (26.0-34.0); Monocytes # (Auto) 0.5 K/mcL (0.1-0.9); Monocytes % (Auto) 5.3 % (1.0-12.0); Platelet Count 451 K/mcL (140-440); RBC 3.98 M/mcL (4.00-5.20); Red Cell Distribution Width 15.7 % (11.5-14.5)
[2016-12-21 08:05] LABS: ALT/SGPT 34 U/l (0-40); Albumin 2.8 gm/dL (3.2-5.2); Albumin/Globulin Ratio 0.9 (1.0-2.3); Alkaline Phosphatase 176 U/L (39-117); Bilirubin,Direct < 0.2 mg/dL (0.0-0.3); Blood Urea Nitrogen 26 mg/dl (8-23); C-Reactive Protein 1.5 mg/dl (0.0-0.8); Gamma Glutamyl Transpeptidase 133 U/L (5-36); Magnesium 2.1 mg/dL (1.6-2.5); Uric Acid 3.1 mg/dL (2.5-8.0)
[2016-12-21 08:59] LABS: Erythrocyte Sedimentation Rate 83 mm/hr (0-20)
[2016-12-21] MEDS: COLESTIPOLL 1 GM TABLET PO SCH ×4 (09:58→21:45)
[2016-12-21] MEDS: ASPIRIN 81 MG TAB.CHEW PO SCH (09:58)
[2016-12-21] MEDS: CARVEDILOL 6.25 MG TABLET PO SCH ×2 (09:58→21:08)
[2016-12-21] MEDS: sitaGLIPtin 50 MG TABLET PO SCH (09:58)
--- NOTE | 2016-12-21 09:58 | Internal Med Progress Note ---
Medical - PN: Subj Patient information: Note initiated : 12/21/16 at 9:55 am Service Date, if different from initiated Date: [] Patient: Irma Craig 66 y/o F admitted on 12/16/16 for SOB,Low O2 sat, Low BP/Hypoxic Respiratory Failure. Chief Complaint: [] Interval history: Ms. Craig is a 66 year old Female with h/o smoking in the past presents to the ER with complaints of shortness of breath, cough, not feeling well, fever, headache and nausea/ vomiting x 2 weeks The patient was alright approximately 2 weeks ago, when she started to have some headache, with some photophobia, she also noted difficulty in breathing and cough, she had a low grade temperature tmax as per was 101. There was ? sinus symptoms. the cough was dry without sputum associated with shortness of breath, at rest and activity. She also thought there may be some wheezing. The patient symptoms worsened after a few days and therefore she saw Dr Loza, who started the patient on Augmentin. The patient did take the medication but did not have much relief. The patients symptoms so she went back to see the doctor. This time her oxygen sats were low in the clinic but she responded to albuterol She was started on z pack and albuterol along with some cough medication. Plan was also to use medrol dose pack, but I did not see any prescription for same. The patient took her meds but there was no improvement in her symptoms. She was supposed to see her pcp next week but since her condition worsend,and that she had nausea and vomiting, with very little pp intake she was asked to come to the ER for further eval. In the ER she was hypoxic and tachypenic, she had normal wbc count, slight bump in her creat from 0.8 ti 1.2, elevated neurtophils but normal eosinophils, mildly elevated bnp, neg ekg for acute ischemia and neg troponin. She underwent a CT Scan which shows a diffuse infiltrative disease ARDS vs Intersitial PNA vs Pulm Hemorrhage, vs ILD vs inflammatory disease vs atypical pna. Neg for PE The patient was admitted to the hospital for further management The patient denies any h/o chest pains, no edema feet, no sick contacts, no travel or camping, no pets or contact with birds. She has strong history of smoking but PFT done in 2016 was reported as normal. CXR in past normal, CT abdomen 2014 showed normal lung architecture. The patient has h/o smoking in the past but has quit in . 12/17: The patient seen examined, no acute ovenight events, her oxygen requirement went up from 3L to 6L this am, and now is being weaned down, she has no new concerns or complaints to report, does have shortness of breath and cough which is still bothering her. 12/18: Patient seen examined, no acute overnight events, echo done shows normal lvef, pt feels somewhat better, but still on 4L oxygen, desaturates easily with minimal movement. Pulm joseph appreciated. Await autoimmune workup for now. Plan of care reviewed with the patient and her . 12/19: pt seen examined, no acute overnight events, still on 3-4L oxygen, but breathing is better,cough better. X Ray chest is unchanged from admission. still on steroids and levofloxacin. labs for autoimmune and fungal disease is pending. Pulmonary following, no plan for lung biopsy at this time. 12/20-atient doing well. No overnight events. Denies fever chills nausea vomiting or concerns per nursing staff.n 3 L oxygen. improving SOB. Labs pending. On steroids. Pulmonology recommends lowering doses of steroids to half in 24 hours. Echocardiogram unremarkable 12/21-patient doing well. On 2 L oxygen. Significant improvement since admission. Steroid dose down to half at 40 twice a day. await further pulmonology recommendations. immunological panel pending. Mycoplasma/HIV/ hepatitis panel negative. Elevated complements. Negative rheumatoid factor. etiology still in question - Constitutional Vitals: Vital Signs Temp Pulse Resp BP Pulse Ox 97.9 F 85 16 133/74 98 12/21/16 07:28 12/21/16 07:35 12/21/16 07:35 12/21/16 07:28 12/21/16 07:35 Period Temp Pulse Resp BP Sys/Waldron Pulse Ox Last 24 Hr 97.2 F-98.3 F 67-85 16-22 133-166/57-76 90-98 Intake and Output 12/20/16 12/21/16 12/21/16 21:59 05:59 13:59 Intake Total 540 / 540 50 / 50 Output Total 500 / 500 500 / 500 Balance 40 / 40 -450 / -450 Weight 217 lb 8 oz Intake & Output: Intake & Output 12/20/16 12/21/16 12/21/16 21:59 05:59 13:59 Intake Total 540 / 540 50 / 50 Output Total 500 / 500 500 / 500 Balance 40 / 40 -450 / -450 Weight 217 lb 8 oz Intake: Oral 540 / 540 50 / 50 Output: Void Amount 500 / 500 500 / 500 Other: Meal Dinner Percent of Meal Consumed 100% Feeding Ability Assist with Tray Set Up General appearance: cooperative, no acute distress Exam: lert oriented nonlabored breathing Nondistended abdomen No lymphedema or pallor no anxiety Medical - PN: Obj Da - Labs CBC & Chem 7: 12/21/16 05:12 12/21/16 05:12 Labs: Abnormal Lab Results 12/21/16 12/21/16 12/20/16 05:12 05:12 04:40 RBC 3.98 L Hgb 11.6 L Hct 35.2 L RDW 15.7 H Plt Count 451 H Gran % 88.1 H Lymph % (Auto) 6.5 L Gran # Lymph # (Auto) 0.6 L ESR 83 H Carbon Dioxide BUN 26 H 24 H Glucose 122 H 158 H GGT 133 H 108 H Alkaline Phosphatase 176 H 177 H Lactate Dehydrogenase 324 H 296 H C-Reactive Protein 1.5 H Total Protein 5.7 L Albumin 2.8 L 2.8 L Albumin/Globulin Ratio 0.9 L Triglycerides 220 H 210 H 12/20/16 12/19/16 12/19/16 04:40 04:13 04:13 RBC 3.70 L 3.69 L Hgb 10.9 L 11.1 L Hct 32.8 L 32.9 L RDW 16.2 H 15.8 H Plt Count 444 H 469 H Gran % 87.6 H 90.4 H Lymph % (Auto) 7.6 L 5.8 L Gran # 8.8 H Lymph # (Auto) 0.6 L 0.6 L ESR Carbon Dioxide 21 L BUN Glucose 238 H GGT 97 H Alkaline Phosphatase 185 H Lactate Dehydrogenase 315 H C-Reactive Protein Total Protein Albumin 2.8 L Albumin/Globulin Ratio 0.9 L Triglycerides Meds: Medications Acetaminophen (Tylenol) 650 mg PO Q6HP PRN PRN Reason: PAIN/FEVER > 101 Hydrocodone Bitart/Acetaminophen ([place] 5/325mg) 1 tab PO Q4HP PRN PRN Reason: Pain Albuterol/Ipratropium (Duoneb) 3 ml NEB Q4HRT [facility] Last Admin: 12/21/16 07:34 Dose: 3 ml Aspirin (Aspirin) 81 mg PO DAILY [facility] Last Admin: 12/20/16 09:03 Dose: 81 mg Carvedilol (Coreg) 12.5 mg PO BID [facility] Last Admin: 12/20/16 20:38 Dose: 12.5 mg Colestipol HCl (Colestid) 1 gm PO QID [facility] Last Admin: 12/20/16 20:38 Dose: 1 gm Dextrose (Dextrose 50%) 0 ml IV UD PRN PRN Reason: Hypoglycemia Diagnostic Test (Pha) (Accu-Chek) [address] [facility] Last Admin: 12/21/16 07:21 Dose: 1 each Glucose (Insta-Glucose) 15 gm PO PRN PRN PRN Reason: Hypoglycemia Heparin Sodium (Porcine) (Heparin) 5,000 unit SQ Q12 [facility] Last Admin: 12/20/16 20:40 Dose: 5,000 unit Levofloxacin (Levaquin) 750 mg in 150 mls @ 100 mls/hr IV DAILY [facility] Stop: 12/22/16 10:29 Last Infusion: 12/20/16 11:20 Dose: Infused Insulin Glargine (Lantus) 110 unit SQ BID [facility] Last Admin: 12/20/16 20:41 Dose: 110 unit Insulin Human Lispro (Humalog) [address] [facility] PRN Reason: Protocol Last Admin: 12/21/16 07:22 Dose: Not Given Magnesium Hydroxide (Milk Of Magnesia) 30 ml PO DAILYP PRN PRN Reason: Constipation Methocarbamol (Robaxin) 750 mg PO Q6HP PRN PRN Reason: Muscle Spasm Methylprednisolone Sodium Succinate (Solu-Medrol) 40 mg IV Q12 [facility] Naloxone HCl (Narcan) 0.1 mg IV Q2MIN PRN PRN Reason: Opiate Reversal Nortriptyline HCl (Pamelor) 10 mg PO HS [facility] Last Admin: 12/20/16 20:40 Dose: 10 mg Ondansetron HCl (Zofran) 4 mg IV Q4HP PRN PRN Reason: Nausea And Vomiting Pantoprazole Sodium (Protonix) 40 mg PO QAMAC [facility] Last Admin: 12/21/16 07:21 Dose: 40 mg Ropinirole HCl (Requip) 0.75 mg PO HS [facility] Last Admin: 12/20/16 20:40 Dose: 0.75 mg Sertraline HCl (Zoloft) 50 mg PO DAILY [facility] Last Admin: 12/20/16 09:03 Dose: 50 mg Sitagliptin Phosphate (Januvia) 100 mg PO QDAY [facility] Last Admin: 12/20/16 09:14 Dose: 100 mg Sodium Chloride (Saline Flush) 10 ml IV Q8 [facility] Last Admin: 12/20/16 22:00 Dose: 10 ml Throat Lozenges (Cepacol) 1 lozenge PO PRN PRN PRN Reason: Sore Throat Last Admin: 12/19/16 11:39 Dose: 1 lozenge Medical - PN: A/P - Time Spent With Patient Total time spent is greater than 50% in coordination of care (as documented) at patient's floor/unit and/or counseling patient: 15 - 24 minutes - Narrative A/P Narrative: A/P * Acute hypoxic Respiratory Failure: linically improving Currently on 2 L oxygen. n IV steroids * Interstitial pneumonia. Unclear etiology. Pulmonology on board with extensive immunological workup pending. continue levofloxacin for atypical organism coverage. steroid dose halved * DM: continue basal prandial insulin. Blood sugars at goal * HTN -on Coreg. Systolics at home * Acute Kidney INjury: resolved * Abnl LFt -normalized * h/o reflux disease: continue PPI * DVT hep sq * Full code
[2016-12-21] MEDS: SERTRALINE 50 MG TABLET PO SCH (09:59)
[2016-12-21] MEDS: INSULIN GLARGINE, HUMAN 1 UNIT/0.01 ML SQ SCH ×2 (10:00→21:08)
[2016-12-21] MEDS: HEPARIN 5,000 UNIT/ML VIAL SQ SCH ×2 (10:01→21:08)
[2016-12-21] MEDS: 0.9 % SODIUM CHLORIDE 10 ML SYRINGE IV SCH ×3 (10:02→21:45)
[2016-12-21 11:27] LABS: Hepatitis B Core Antibody NON-REACTIVE (NON-REACTIVE)
[2016-12-21 11:42] LABS: Anti-Glomerular Basement Memb < 1.0 AI (<1.0); Anti-Streptolysin O Titer 39 IU/mL (<200)
[2016-12-21] MEDS: LEVOFLOXACIN 750 MG/150 ML BAG IV SCH (11:48)
[2016-12-21 14:56] LABS: ANCA Screen NEGATIVE (NEGATIVE); Myeloperoxidase Antibody <1.0 AI (<1.0)
[2016-12-21] MEDS: BENZOCAINE/MENTHOL 1 LOZENGE PO PRN (19:48)
[2016-12-21] MEDS: rOPINIRole 0.25 MG TABLET PO SCH (21:07)
[2016-12-21] MEDS: NORTRIPTYLINE 10 MG CAPSULE PO SCH (21:07)
[2016-12-22] MEDS: IPRATROPIUM/ALBUTEROL 3 ML AMPUL.NEB NEB SCH ×7 (03:14→23:06)
[2016-12-22 06:39] LABS: Basophils # (Auto) 0 K/mcL (0.0-0.3); Basophils % (Auto) 0.1 % (0.0-2.0); Eosinophils # (Auto) 0 K/mcL (0.0-0.7); Eosinophils % (Auto) 0.3 % (0.0-7.0); Granulocytes % (Auto) 85.5 % (38.0-78.0); Lymphocytes # (Auto) 0.7 K/mcL (1.5-4.8); Lymphocytes % (Auto) 9.9 % (15.5-49.0); Mean Cell Volume 89.1 fL (80.0-100.0); Mean Corpuscular HGB Conc 32.9 g/dL (31.0-36.0); Mean Corpuscular Hemoglobin 29.3 pg (26.0-34.0); Monocytes # (Auto) 0.3 K/mcL (0.1-0.9); Monocytes % (Auto) 4.2 % (1.0-12.0); Platelet Count 435 K/mcL (140-440); RBC 4.04 M/mcL (4.00-5.20)
[2016-12-22 07:00] LABS: ALT/SGPT 38 U/l (0-40); Albumin 2.9 gm/dL (3.2-5.2); Alkaline Phosphatase 157 U/L (39-117); Bilirubin,Direct < 0.2 mg/dL (0.0-0.3); Blood Urea Nitrogen 26 mg/dl (8-23); Gamma Glutamyl Transpeptidase 141 U/L (5-36); Magnesium 2.1 mg/dL (1.6-2.5); Uric Acid 3.9 mg/dL (2.5-8.0)
[2016-12-22] MEDS: PANTOPRAZOLE 40 MG TABLET PO SCH (07:11)
[2016-12-22] MEDS: 0.9 % SODIUM CHLORIDE 10 ML SYRINGE IV SCH ×3 (07:12→21:11)
[2016-12-22] MEDS: INSULIN LISPRO 1 UNIT/0.01 ML UNIT SQ SCH ×4 (07:12→21:09)
--- NOTE | 2016-12-22 08:24 | Pulmonology Progress Note ---
Subjective Patient information: Note initiated : 12/22/16 at 8:17 am Service Date, if different from initiated Date: [] Patient: Irma Craig 66 y/o F admitted on 12/16/16 for SOB,Low O2 sat, Low BP/Hypoxic Respiratory Failure. Chief Complaint: [ Dyspnea, The patient indicates that she still desaturates with ambulation, RN reports down to 89% with walking on 2 l/m. Cough , non-productive persists. Some edema yesterday, improved with pedal elevation. Lungs: shallow respirations persist, but fewer crackles. heart RRR S1, S2 no edema this AM CRP improved; ESR better. IMP: interstitial lung inflammation etiology remains undefined. Plan: monitor clinical course and taper steroids to 40 mg prednisone as able. Await other lab results. Tee Guido MD ] Principal diagnosis: interstitial pulmonary process etiology not precisely defined Objective Vital Signs Temp Pulse Pulse Resp BP BP Pulse Ox 12/22/16 03:23 97.3 F 20 141/65 95 12/22/16 00:00 96.9 F L 20 143/62 94 12/21/16 23:49 94 12/21/16 23:23 77 18 95 12/21/16 20:00 97.8 F 77 18 149/66 95 12/21/16 19:46 88 L 12/21/16 19:44 84 L 12/21/16 19:40 90 12/21/16 19:37 72 16 95 12/21/16 19:00 76 95 12/21/16 16:00 98.3 F 76 18 134/67 95 12/21/16 15:12 62 16 12/21/16 12:43 96 12/21/16 12:00 98.4 F 64 18 140/68 98 12/21/16 11:26 74 18 Intake and Output 12/21/16 12/22/16 12/22/16 21:59 05:59 13:59 Intake Total 720 / 720 250 / 250 Output Total 1400 / 1400 2300 / 2300 Balance -680 / -680 -2049 / -2049 Intake: Oral 720 / 720 250 / 250 Output: Void Amount 1400 / 1400 2300 / 2300 Other: Meal Dinner Percent of Meal Consumed 100% Feeding Ability Independent # Bowel Movements 1 Weight 216 lb Intake & Output: Intake & Output 0912/22/16 12/22/16 21:59 05:59 13:59 Intake Total 720 / 720 250 / 250 Output Total 1400 / 1400 2300 / 2300 Balance -680 / -680 -2049 / -2049 Weight 216 lb Intake: Oral 720 / 720 250 / 250 Output: Void Amount 1400 / 1400 2300 / 2300 Other: Meal Dinner Percent of Meal Consumed 100% Feeding Ability Independent # Bowel Movements 1 CBC and BMP: 12/22/16 04:06 12/22/16 04:06 Abnormal lab findings: Abnormal Labs 12/16/16 12/16/16 12/16/16 21:51 21:51 21:51 RBC Hgb Hct RDW Plt Count Gran % Lymph % (Auto) Gran # Lymph # (Auto) ESR 111 H Carbon Dioxide Anion Gap BUN Glucose Hemoglobin A1c Calcium Phosphorus GGT AST ALT Alkaline Phosphatase Lactate Dehydrogenase C-Reactive Protein 14.4 H Total Protein Albumin Globulin Albumin/Globulin Ratio Triglycerides Complement C3 226.5 H Complement C4 60.7 H 12/16/16 12/17/16 12/17/16 21:51 03:56 03:56 RBC Hgb Hct 35.9 L RDW 15.5 H Plt Count 455 H Gran % 90.6 H Lymph % (Auto) 6.6 L Gran # Lymph # (Auto) 0.4 L ESR Carbon Dioxide 20 L Anion Gap 17.0 H BUN Glucose 217 H Hemoglobin A1c 10.7 H Calcium Phosphorus GGT 122 H AST 44 H ALT 50 H Alkaline Phosphatase 209 H Lactate Dehydrogenase 301 H C-Reactive Protein Total Protein Albumin 2.6 L Globulin 3.9 H Albumin/Globulin Ratio 0.7 L Triglycerides 155 H Complement C3 Complement C4 12/18/16 12/18/16 12/19/16 08:10 08:10 04:13 RBC 3.84 L 3.69 L Hgb 11.4 L 11.1 L Hct 34.6 L 32.9 L RDW 15.8 H 15.8 H Plt Count 463 H 469 H Gran % 90.5 H 90.4 H Lymph % (Auto) 5.4 L 5.8 L Gran # 8.8 H Lymph # (Auto) 0.5 L 0.6 L ESR Carbon Dioxide Anion Gap BUN Glucose 343 H Hemoglobin A1c Calcium 8.5 L Phosphorus 2.6 L GGT 101 H AST ALT Alkaline Phosphatase 189 H Lactate Dehydrogenase 261 H C-Reactive Protein Total Protein Albumin 2.8 L Globulin Albumin/Globulin Ratio 0.8 L Triglycerides Complement C3 Complement C4 12/19/16 12/20/16 12/20/16 04:13 04:40 04:40 RBC 3.70 L Hgb 10.9 L Hct 32.8 L RDW 16.2 H Plt Count 444 H Gran % 87.6 H Lymph % (Auto) 7.6 L Gran # Lymph # (Auto) 0.6 L ESR Carbon Dioxide 21 L Anion Gap BUN 24 H Glucose 238 H 158 H Hemoglobin A1c Calcium Phosphorus GGT 97 H 108 H AST ALT Alkaline Phosphatase 185 H 177 H Lactate Dehydrogenase 315 H 296 H C-Reactive Protein Total Protein 5.7 L Albumin 2.8 L 2.8 L Globulin Albumin/Globulin Ratio 0.9 L Triglycerides 210 H Complement C3 Complement C4 12/21/16 12/21/16 12/22/16 05:12 05:12 04:06 RBC 3.98 L Hgb 11.6 L 11.9 L Hct 35.2 L RDW 15.7 H 16.0 H Plt Count 451 H Gran % 88.1 H 85.5 H Lymph % (Auto) 6.5 L 9.9 L Gran # Lymph # (Auto) 0.6 L 0.7 L ESR 83 H Carbon Dioxide Anion Gap BUN 26 H Glucose 122 H Hemoglobin A1c Calcium Phosphorus GGT 133 H AST ALT Alkaline Phosphatase 176 H Lactate Dehydrogenase 324 H C-Reactive Protein 1.5 H Total Protein Albumin 2.8 L Globulin Albumin/Globulin Ratio 0.9 L Triglycerides 220 H Complement C3 Complement C4 12/22/16 04:06 RBC Hgb Hct RDW Plt Count Gran % Lymph % (Auto) Gran # Lymph # (Auto) ESR Carbon Dioxide Anion Gap BUN 26 H Glucose 57 L Hemoglobin A1c Calcium Phosphorus 4.8 H GGT 141 H AST 41 H ALT Alkaline Phosphatase 157 H Lactate Dehydrogenase 337 H C-Reactive Protein Total Protein 5.7 L Albumin 2.9 L Globulin Albumin/Globulin Ratio Triglycerides 182 H Complement C3 Complement C4
[2016-12-22] MEDS: COLESTIPOLL 1 GM TABLET PO SCH ×4 (09:07→21:10)
[2016-12-22] MEDS: SERTRALINE 50 MG TABLET PO SCH (09:07)
[2016-12-22] MEDS: sitaGLIPtin 50 MG TABLET PO SCH (09:07)
[2016-12-22] MEDS: ASPIRIN 81 MG TAB.CHEW PO SCH (09:07)
[2016-12-22] MEDS: CARVEDILOL 6.25 MG TABLET PO SCH ×2 (09:07→19:09)
[2016-12-22] MEDS: HEPARIN 5,000 UNIT/ML VIAL SQ SCH ×2 (09:07→21:10)
[2016-12-22] MEDS: LEVOFLOXACIN 750 MG/150 ML BAG IV SCH (09:08)
[2016-12-22] MEDS: INSULIN GLARGINE, HUMAN 1 UNIT/0.01 ML SQ SCH ×2 (09:08→21:09)
[2016-12-22] MEDS: methylPREDNISolone SOD SUCC 125 MG/2 ML VIAL IV SCH (09:38)
[2016-12-22 09:41] LABS: Cyclic Citrullinated Peptide < 16 UNITS
[2016-12-22 09:49] LABS: DNA AB(DS) Crithidia, IFA NEGATIVE (NEGATIVE); Rhuematoid Factor 14 IU/mL (<14); SM Antibody <1.0 NEG AI (SEE COMMENT); Scl-70 <1.0 NEG AI (SEE COMMENT)
[2016-12-22] MEDS ORDERED: MAGNESIUM HYDROXIDE 30 ML ORAL.SUSP PO PRN (11:03)
[2016-12-22] MEDS ORDERED: HYDROcodone/APAP 5/325MG TABLET PO PRN (11:03)
[2016-12-22] MEDS ORDERED: METHOCARBAMOL 750 MG TABLET PO PRN (11:03)
[2016-12-22] MEDS ORDERED: ONDANSETRON 4 MG/2 ML VIAL IV PRN (11:03)
[2016-12-22] MEDS ORDERED: BENZOCAINE/MENTHOL 1 LOZENGE PO PRN (11:03)
[2016-12-22] MEDS ORDERED: DEXTROSE 50% 50 ML VIAL IV PRN (11:03)
[2016-12-22] MEDS ORDERED: ACETAMINOPHEN 325 MG TABLET PO PRN (11:03)
[2016-12-22] MEDS ORDERED: DEXTROSE 31 GM ORAL.SUSP PO PRN (11:03)
[2016-12-22] MEDS ORDERED: NALOXONE HCL 0.4 MG/ML VIAL IV PRN (11:03)
--- NOTE | 2016-12-22 11:17 | Internal Med Progress Note ---
Medical - PN: Subj Patient information: Note initiated : 12/22/16 at 11:12 am Service Date, if different from initiated Date: [] Patient: Irma Craig 66 y/o F admitted on 12/16/16 for SOB,Low O2 sat, Low BP/Hypoxic Respiratory Failure. Chief Complaint: [] Interval history: Ms. Craig is a 66 year old Female with h/o smoking in the past presents to the ER with complaints of shortness of breath, cough, not feeling well, fever, headache and nausea/ vomiting x 2 weeks The patient was alright approximately 2 weeks ago, when she started to have some headache, with some photophobia, she also noted difficulty in breathing and cough, she had a low grade temperature tmax as per was 101. There was ? sinus symptoms. the cough was dry without sputum associated with shortness of breath, at rest and activity. She also thought there may be some wheezing. The patient symptoms worsened after a few days and therefore she saw Dr Loza, who started the patient on Augmentin. The patient did take the medication but did not have much relief. The patients symptoms so she went back to see the doctor. This time her oxygen sats were low in the clinic but she responded to albuterol She was started on z pack and albuterol along with some cough medication. Plan was also to use medrol dose pack, but I did not see any prescription for same. The patient took her meds but there was no improvement in her symptoms. She was supposed to see her pcp next week but since her condition worsend,and that she had nausea and vomiting, with very little pp intake she was asked to come to the ER for further eval. In the ER she was hypoxic and tachypenic, she had normal wbc count, slight bump in her creat from 0.8 ti 1.2, elevated neurtophils but normal eosinophils, mildly elevated bnp, neg ekg for acute ischemia and neg troponin. She underwent a CT Scan which shows a diffuse infiltrative disease ARDS vs Intersitial PNA vs Pulm Hemorrhage, vs ILD vs inflammatory disease vs atypical pna. Neg for PE The patient was admitted to the hospital for further management The patient denies any h/o chest pains, no edema feet, no sick contacts, no travel or camping, no pets or contact with birds. She has strong history of smoking but PFT done in 2016 was reported as normal. CXR in past normal, CT abdomen 2014 showed normal lung architecture. The patient has h/o smoking in the past but has quit in . 12/17: The patient seen examined, no acute ovenight events, her oxygen requirement went up from 3L to 6L this am, and now is being weaned down, she has no new concerns or complaints to report, does have shortness of breath and cough which is still bothering her. 12/18: Patient seen examined, no acute overnight events, echo done shows normal lvef, pt feels somewhat better, but still on 4L oxygen, desaturates easily with minimal movement. Pulm joseph appreciated. Await autoimmune workup for now. Plan of care reviewed with the patient and her . 12/19: pt seen examined, no acute overnight events, still on 3-4L oxygen, but breathing is better,cough better. X Ray chest is unchanged from admission. still on steroids and levofloxacin. labs for autoimmune and fungal disease is pending. Pulmonary following, no plan for lung biopsy at this time. 12/20-atient doing well. No overnight events. Denies fever chills nausea vomiting or concerns per nursing staff.n 3 L oxygen. improving SOB. Labs pending. On steroids. Pulmonology recommends lowering doses of steroids to half in 24 hours. Echocardiogram unremarkable 12/21-patient doing well. On 2 L oxygen. Significant improvement since admission. Steroid dose down to half at 40 twice a day. await further pulmonology recommendations. immunological panel pending. Mycoplasma/HIV/ hepatitis panel negative. Elevated complements. Negative rheumatoid factor. etiology still in question /14-patient doing well. No overnight events. On 2 L oxygen. We will still desaturates on exertion. Denies fever or chills or productive sputumor major overnight events. Multiple workup including autoimmune and fungal panel pending. radiology. However much improved on IV steroids. Taper down to 40 twice a dayand will be on prednisone 40 once daily starting 12/23. anticipate additional 48-72 hours monitoring for clinical improvement before planning discharge - Constitutional Vitals: Vital Signs Temp Pulse Resp BP Pulse Ox 97.5 F 77 20 132/73 97 12/22/16 11:09 12/21/16 23:23 12/22/16 11:09 12/22/16 11:12/22/16 11:09 Period Temp Pulse Resp BP Sys/Waldron Pulse Ox Last 24 Hr 96.9 F-98.4 F 62-77 16-20 132-160/62-94 84-98 Intake and Output 12/21/16 12/22/16 12/22/16 21:59 05:59 13:59 Intake Total 720 / 720 250 / 250 Output Total 1400 / 1400 2300 / 2300 700 / 700 Balance -680 / -680 -2050 / -2050 -700 / -700 Weight 216 lb Intake & Output: Intake & Output 12/21/16 12/22/16 12/22/16 21:59 05:59 13:59 Intake Total 720 / 720 250 / 250 Output Total 1400 / 1400 2300 / 2300 700 / 700 Balance -680 / -680 -2050 / -2050 -700 / -700 Weight 216 lb Intake: Oral 720 / 720 250 / 250 Output: Void Amount 1400 / 1400 2300 / 2300 700 / 700 Other: Meal Dinner Percent of Meal Consumed 100% Feeding Ability Independent # Bowel Movements 1 General appearance: cooperative, no acute distress Exam: alert oriented on 2 L oxygen nonlabored breathing nondistended abdomen Medical - PN: Obj Da - Labs CBC & Chem 7: 12/22/16 04:06 12/22/16 04:06 Labs: Abnormal Lab Results 12/22/16 12/22/16 12/21/16 04:06 04:06 05:12 RBC Hgb 11.9 L Hct RDW 16.0 H Plt Count Gran % 85.5 H Lymph % (Auto) 9.9 L Lymph # (Auto) 0.7 L ESR BUN 26 H 26 H Glucose 57 L 122 H Phosphorus 4.8 H GGT 141 H 133 H AST 41 H Alkaline Phosphatase 157 H 176 H Lactate Dehydrogenase 337 H 324 H C-Reactive Protein 1.5 H Total Protein 5.7 L Albumin 2.9 L 2.8 L Albumin/Globulin Ratio 0.9 L Triglycerides 182 H 220 H Rheumatoid Factor 12/21/16 12/20/16 12/20/16 05:12 04:40 04:40 RBC 3.98 L 3.70 L Hgb 11.6 L 10.9 L Hct 35.2 L 32.8 L RDW 15.7 H 16.2 H Plt Count 451 H 444 H Gran % 88.1 H 87.6 H Lymph % (Auto) 6.5 L 7.6 L Lymph # (Auto) 0.6 L 0.6 L ESR 83 H BUN 24 H Glucose 158 H Phosphorus GGT 108 H AST Alkaline Phosphatase 177 H Lactate Dehydrogenase 296 H C-Reactive Protein Total Protein 5.7 L Albumin 2.8 L Albumin/Globulin Ratio Triglycerides 210 H Rheumatoid Factor 12/16/16 21:51 RBC Hgb Hct RDW Plt Count Gran % Lymph % (Auto) Lymph # (Auto) ESR BUN Glucose Phosphorus GGT AST Alkaline Phosphatase Lactate Dehydrogenase C-Reactive Protein Total Protein Albumin Albumin/Globulin Ratio Triglycerides Rheumatoid Factor 14 A Meds: Medications Acetaminophen (Tylenol) 650 mg PO Q6HP PRN PRN Reason: PAIN/FEVER > 101 Hydrocodone Bitart/Acetaminophen ([place] 5/325mg) 1 tab PO Q4HP PRN PRN Reason: Pain Albuterol/Ipratropium (Duoneb) 3 ml NEB Q4HRT [facility] Aspirin (Aspirin) 81 mg PO DAILY CARMEN Carvedilol (Coreg) 12.5 mg PO BIDCC [facility] Colestipol HCl (Colestid) 1 gm PO QID [facility] Dextrose (Dextrose 50%) 0 ml IV UD PRN PRN Reason: Hypoglycemia Diagnostic Test (Pha) (Accu-Chek) 1 each FS ACHS [facility] Glucose (Insta-Glucose) 15 gm PO PRN PRN PRN Reason: Hypoglycemia Heparin Sodium (Porcine) (Heparin) 5,000 unit SQ Q12 [facility] Insulin Glargine (Lantus) 50 unit SQ BID CARMEN Insulin Human Lispro (Humalog) 0 unit SQ ACHS CARMEN PRN Reason: Protocol Magnesium Hydroxide (Milk Of Magnesia) 30 ml PO DAILYP PRN PRN Reason: Constipation Methocarbamol (Robaxin) 750 mg PO Q6HP PRN PRN Reason: Muscle Spasm Methylprednisolone Sodium Succinate (Solu-Medrol) 40 mg IV Q12 [facility] Stop: 12/23/16 00:05 Naloxone HCl (Narcan) 0.1 mg IV Q2MIN PRN PRN Reason: Opiate Reversal Nortriptyline HCl (Pamelor) 10 mg PO HS [facility] Ondansetron HCl (Zofran) 4 mg IV Q4HP PRN PRN Reason: Nausea And Vomiting Pantoprazole Sodium (Protonix) 40 mg PO QAMAC CARMEN Prednisone (Prednisone) 40 mg PO QAMCC CARMEN Ropinirole HCl (Requip) 0.75 mg PO HS CARMEN Sertraline HCl (Zoloft) 50 mg PO DAILY CARMEN Sitagliptin Phosphate (Januvia) 100 mg PO QDAY CARMNE Sodium Chloride (Saline Flush) 10 ml IV Q8 CARMEN Throat Lozenges (Cepacol) 1 lozenge PO PRN PRN PRN Reason: Sore Throat Medical - PN: A/P - Time Spent With Patient Total time spent is greater than 50% in coordination of care (as documented) at patient's floor/unit and/or counseling patient: 15 - 24 minutes - Narrative A/P Narrative: A/P * Acute hypoxic Respiratory Failure: clinically improving Currently on 2 L oxygen. n IV steroids * Interstitial pneumonitis. Unclear etiology. Pulmonology on board with extensive immunologicalworkup including JOSUE/anka are negative, complements elevated. Fungal workup pending including blasto histo and cocci. continue levofloxacin for atypical organism coverage. Transition to oral prednisone in 24 hours * DM: continue basal prandial insulin. Blood sugars at goal. Lantus dose cut down from 110 ->50 * HTN -on Coreg. Systolics at goal * Acute Kidney INjury: resolved * Abnl LFt -normalized * h/o reflux disease: continue PPI * DVT hep sq * Full code plan * transition to oral steroids * continue physical therapy * Arrange home CPAP and home oxygen
[2016-12-22] MEDS ORDERED: methylPREDNISolone SOD SUCC 125 MG/2 ML VIAL IV SCH (21:00)
[2016-12-22] MEDS: rOPINIRole 0.25 MG TABLET PO SCH (21:10)
[2016-12-22] MEDS: NORTRIPTYLINE 10 MG CAPSULE PO SCH (21:10)
[2016-12-23] MEDS: IPRATROPIUM/ALBUTEROL 3 ML AMPUL.NEB NEB SCH ×6 (04:02→23:42)
[2016-12-23] MEDS: 0.9 % SODIUM CHLORIDE 10 ML SYRINGE IV SCH ×3 (04:58→20:58)
[2016-12-23 05:32] LABS: Basophils # (Auto) 0 K/mcL (0.0-0.3); Basophils % (Auto) 0.2 % (0.0-2.0); Eosinophils # (Auto) 0 K/mcL (0.0-0.7); Eosinophils % (Auto) 0.5 % (0.0-7.0); Granulocytes % (Auto) 85.9 % (38.0-78.0); Lymphocytes # (Auto) 0.7 K/mcL (1.5-4.8); Mean Corpuscular Hemoglobin 29.4 pg (26.0-34.0); Monocytes # (Auto) 0.3 K/mcL (0.1-0.9); Monocytes % (Auto) 4.4 % (1.0-12.0); Platelet Count 445 K/mcL (140-440); RBC 4.24 M/mcL (4.00-5.20); Red Cell Distribution Width 16.3 % (11.5-14.5)
[2016-12-23 06:06] LABS: ALT/SGPT 42 U/l (0-40); Alkaline Phosphatase 153 U/L (39-117); Bilirubin,Direct < 0.2 mg/dL (0.0-0.3); Blood Urea Nitrogen 22 mg/dl (8-23); C-Reactive Protein 0.6 mg/dl (0.0-0.8); Gamma Glutamyl Transpeptidase 149 U/L (5-36); Magnesium 2.1 mg/dL (1.6-2.5); Uric Acid 4.5 mg/dL (2.5-8.0)
[2016-12-23 06:46] LABS: Erythrocyte Sedimentation Rate 60 mm/hr (0-20)
[2016-12-23] MEDS: INSULIN LISPRO 1 UNIT/0.01 ML UNIT SQ SCH ×4 (06:57→20:43)
[2016-12-23] MEDS: PANTOPRAZOLE 40 MG TABLET PO SCH (06:59)
[2016-12-23] MEDS: COLESTIPOLL 1 GM TABLET PO SCH ×4 (08:20→21:35)
[2016-12-23] MEDS: HEPARIN 5,000 UNIT/ML VIAL SQ SCH ×2 (09:31→20:50)
[2016-12-23] MEDS: INSULIN GLARGINE, HUMAN 1 UNIT/0.01 ML SQ SCH ×2 (09:31→20:50)
[2016-12-23] MEDS: predniSONE 20 MG TABLET PO SCH (09:32)
[2016-12-23] MEDS: SERTRALINE 50 MG TABLET PO SCH (09:32)
[2016-12-23] MEDS: CARVEDILOL 6.25 MG TABLET PO SCH ×2 (09:32→17:29)
[2016-12-23] MEDS: sitaGLIPtin 50 MG TABLET PO SCH (09:33)
[2016-12-23] MEDS: ASPIRIN 81 MG TAB.CHEW PO SCH (09:33)
--- NOTE | 2016-12-23 09:34 | Pulmonology Progress Note ---
Subjective Patient information: Note initiated : 12/23/16 at 9:29 am Service Date, if different from initiated Date: [] Patient: Irma Craig 66 y/o F admitted on 12/16/16 for SOB,Low O2 sat, Low BP/Hypoxic Respiratory Failure. Chief Complaint: [Dyspnea with exertion. THe patient reports better walking in the halls and a good night. Lungs: no crackles this AM Heart RRR S1, S2, no edema. Esr CRP continue to improve. Starting oral prednisone today. IMP: Interstitial inflammatory process etiology undefined. Plan monitor switch to oral agent. Continue prednisone 40mg on D/C followup first week of OCT my office. Discussed with hospitalist. Tee Lion MD] Principal diagnosis: interstitial pulmonary process etiology not precisely defined Objective Vital Signs Temp Pulse Resp BP BP Pulse Ox 12/23/16 07:43 97.7 F 18 132/66 93 12/23/16 07:16 85 20 12/23/16 04:00 98.1 F 20 138/67 91 12/23/16 00:00 20 122/60 91 12/22/16 23:08 83 18 93 12/22/16 19:57 97.1 F 20 121/55 93 12/22/16 18:48 83 16 93 12/22/16 15:30 98.2 F 20 129/62 92 12/22/16 14:29 79 16 97 12/22/16 11:18 92 H 16 12/22/16 11:09 97.5 F 20 132/73 97 Intake and Output 12/22/16 12/23/16 12/23/16 21:59 05:59 13:59 Intake Total 240 / 240 500 / 500 Output Total 1300 / 1300 1650 / 1650 700 / 700 Balance -1060 / -1060 -1650 / -1650 -200 / -200 Intake: Oral 240 / 240 500 / 500 Output: Void Amount 1300 / 1300 1650 / 1650 700 / 700 Other: Meal Dinner Breakfast Percent of Meal Consumed 100% 100% Feeding Ability Assist with Tray Set Up # Voids 4 # Bowel Movements 1 Weight 211 lb Intake & Output: Intake & Output 12/22/16 12/23/16 12/23/16 21:59 05:59 13:59 Intake Total 240 / 240 500 / 500 Output Total 1300 / 1300 1650 / 1650 700 / 700 Balance -1060 / -1060 -1650 / -1650 -200 / -200 Weight 211 lb Intake: Oral 240 / 240 500 / 500 Output: Void Amount 1300 / 1300 1650 / 1650 700 / 700 Other: Meal Dinner Breakfast Percent of Meal Consumed 100% 100% Feeding Ability Assist with Tray Set Up # Voids 4 # Bowel Movements 1 CBC and BMP: 12/23/16 04:08 12/23/16 04:08 Abnormal lab findings: Abnormal Labs 12/16/16 12/16/16 12/16/16 21:51 21:51 21:51 RBC Hgb Hct RDW Plt Count Gran % Lymph % (Auto) Gran # Lymph # (Auto) ESR 111 H Carbon Dioxide Anion Gap BUN Glucose Hemoglobin A1c Calcium Phosphorus GGT AST ALT Alkaline Phosphatase Lactate Dehydrogenase C-Reactive Protein 14.4 H Total Protein Albumin Globulin Albumin/Globulin Ratio Triglycerides Rheumatoid Factor Complement C3 226.5 H Complement C4 60.7 H 12/16/16 12/16/16 12/17/16 21:51 21:51 03:56 RBC Hgb Hct RDW Plt Count Gran % Lymph % (Auto) Gran # Lymph # (Auto) ESR Carbon Dioxide 20 L Anion Gap 17.0 H BUN Glucose 217 H Hemoglobin A1c 10.7 H Calcium Phosphorus GGT 122 H AST 44 H ALT 50 H Alkaline Phosphatase 209 H Lactate Dehydrogenase 301 H C-Reactive Protein Total Protein Albumin 2.6 L Globulin 3.9 H Albumin/Globulin Ratio 0.7 L Triglycerides 155 H Rheumatoid Factor 14 A Complement C3 Complement C4 12/17/16 12/18/16 12/18/16 03:56 08:10 08:10 RBC 3.84 L Hgb 11.4 L Hct 35.9 L 34.6 L RDW 15.5 H 15.8 H Plt Count 455 H 463 H Gran % 90.6 H 90.5 H Lymph % (Auto) 6.6 L 5.4 L Gran # Lymph # (Auto) 0.4 L 0.5 L ESR Carbon Dioxide Anion Gap BUN Glucose 343 H Hemoglobin A1c Calcium 8.5 L Phosphorus 2.6 L GGT 101 H AST ALT Alkaline Phosphatase 189 H Lactate Dehydrogenase 261 H C-Reactive Protein Total Protein Albumin 2.8 L Globulin Albumin/Globulin Ratio 0.8 L Triglycerides Rheumatoid Factor Complement C3 Complement C4 12/19/16 12/19/16 12/20/16 04:13 04:13 04:40 RBC 3.69 L 3.70 L Hgb 11.1 L 10.9 L Hct 32.9 L 32.8 L RDW 15.8 H 16.2 H Plt Count 469 H 444 H Gran % 90.4 H 87.6 H Lymph % (Auto) 5.8 L 7.6 L Gran # 8.8 H Lymph # (Auto) 0.6 L 0.6 L ESR Carbon Dioxide 21 L Anion Gap BUN Glucose 238 H Hemoglobin A1c Calcium Phosphorus GGT 97 H AST ALT Alkaline Phosphatase 185 H Lactate Dehydrogenase 315 H C-Reactive Protein Total Protein Albumin 2.8 L Globulin Albumin/Globulin Ratio 0.9 L Triglycerides Rheumatoid Factor Complement C3 Complement C4 12/20/16 12/21/16 12/21/16 04:40 05:12 05:12 RBC 3.98 L Hgb 11.6 L Hct 35.2 L RDW 15.7 H Plt Count 451 H Gran % 88.1 H Lymph % (Auto) 6.5 L Gran # Lymph # (Auto) 0.6 L ESR 83 H Carbon Dioxide Anion Gap BUN 24 H 26 H Glucose 158 H 122 H Hemoglobin A1c Calcium Phosphorus GGT 108 H 133 H AST ALT Alkaline Phosphatase 177 H 176 H Lactate Dehydrogenase 296 H 324 H C-Reactive Protein 1.5 H Total Protein 5.7 L Albumin 2.8 L 2.8 L Globulin Albumin/Globulin Ratio 0.9 L Triglycerides 210 H 220 H Rheumatoid Factor Complement C3 Complement C4 12/22/16 12/22/16 12/23/16 04:06 04:06 04:08 RBC Hgb 11.9 L Hct RDW 16.0 H 16.3 H Plt Count 445 H Gran % 85.5 H 85.9 H Lymph % (Auto) 9.9 L 9.0 L Gran # Lymph # (Auto) 0.7 L 0.7 L ESR 60 H Carbon Dioxide Anion Gap BUN 26 H Glucose 57 L Hemoglobin A1c Calcium Phosphorus 4.8 H GGT 141 H AST 41 H ALT Alkaline Phosphatase 157 H Lactate Dehydrogenase 337 H C-Reactive Protein Total Protein 5.7 L Albumin 2.9 L Globulin Albumin/Globulin Ratio Triglycerides 182 H Rheumatoid Factor Complement C3 Complement C4 12/23/16 04:08 RBC Hgb Hct RDW Plt Count Gran % Lymph % (Auto) Gran # Lymph # (Auto) ESR Carbon Dioxide Anion Gap BUN Glucose Hemoglobin A1c Calcium Phosphorus 4.6 H GGT 149 H AST 39 H ALT 42 H Alkaline Phosphatase 153 H Lactate Dehydrogenase 309 H C-Reactive Protein Total Protein Albumin 3.0 L Globulin Albumin/Globulin Ratio Triglycerides 172 H Rheumatoid Factor Complement C3 Complement C4
--- NOTE | 2016-12-23 10:37 | Internal Med Progress Note ---
Medical - PN: Subj Patient information: Note initiated : 12/23/16 at 10:35 am Service Date, if different from initiated Date: [] Patient: Irma Craig 66 y/o F admitted on 12/16/16 for SOB,Low O2 sat, Low BP/Hypoxic Respiratory Failure. Chief Complaint: [] Interval history: Ms. Craig is a 66 year old Female with h/o smoking in the past presents to the ER with complaints of shortness of breath, cough, not feeling well, fever, headache and nausea/ vomiting x 2 weeks The patient was alright approximately 2 weeks ago, when she started to have some headache, with some photophobia, she also noted difficulty in breathing and cough, she had a low grade temperature tmax as per was 101. There was ? sinus symptoms. the cough was dry without sputum associated with shortness of breath, at rest and activity. She also thought there may be some wheezing. The patient symptoms worsened after a few days and therefore she saw Dr Loza, who started the patient on Augmentin. The patient did take the medication but did not have much relief. The patients symptoms so she went back to see the doctor. This time her oxygen sats were low in the clinic but she responded to albuterol She was started on z pack and albuterol along with some cough medication. Plan was also to use medrol dose pack, but I did not see any prescription for same. The patient took her meds but there was no improvement in her symptoms. She was supposed to see her pcp next week but since her condition worsend,and that she had nausea and vomiting, with very little pp intake she was asked to come to the ER for further eval. In the ER she was hypoxic and tachypenic, she had normal wbc count, slight bump in her creat from 0.8 ti 1.2, elevated neurtophils but normal eosinophils, mildly elevated bnp, neg ekg for acute ischemia and neg troponin. She underwent a CT Scan which shows a diffuse infiltrative disease ARDS vs Intersitial PNA vs Pulm Hemorrhage, vs ILD vs inflammatory disease vs atypical pna. Neg for PE The patient was admitted to the hospital for further management The patient denies any h/o chest pains, no edema feet, no sick contacts, no travel or camping, no pets or contact with birds. She has strong history of smoking but PFT done in 2016 was reported as normal. CXR in past normal, CT abdomen 2014 showed normal lung architecture. The patient has h/o smoking in the past but has quit in . 12/17: The patient seen examined, no acute ovenight events, her oxygen requirement went up from 3L to 6L this am, and now is being weaned down, she has no new concerns or complaints to report, does have shortness of breath and cough which is still bothering her. 12/18: Patient seen examined, no acute overnight events, echo done shows normal lvef, pt feels somewhat better, but still on 4L oxygen, desaturates easily with minimal movement. Pulm joseph appreciated. Await autoimmune workup for now. Plan of care reviewed with the patient and her . 12/19: pt seen examined, no acute overnight events, still on 3-4L oxygen, but breathing is better,cough better. X Ray chest is unchanged from admission. still on steroids and levofloxacin. labs for autoimmune and fungal disease is pending. Pulmonary following, no plan for lung biopsy at this time. 12/20-atient doing well. No overnight events. Denies fever chills nausea vomiting or concerns per nursing staff.n 3 L oxygen. improving SOB. Labs pending. On steroids. Pulmonology recommends lowering doses of steroids to half in 24 hours. Echocardiogram unremarkable 12/21-patient doing well. On 2 L oxygen. Significant improvement since admission. Steroid dose down to half at 40 twice a day. await further pulmonology recommendations. immunological panel pending. Mycoplasma/HIV/ hepatitis panel negative. Elevated complements. Negative rheumatoid factor. etiology still in question 12/22-patient doing well. No overnight events. On 2 L oxygen. We will still desaturates on exertion. Denies fever or chills or productive sputumor major overnight events. Multiple workup including autoimmune and fungal panel pending. radiology. However much improved on IV steroids. Taper down to 40 twice a dayand will be on prednisone 40 once daily starting 12/23. anticipate additional 48-72 hours monitoring for clinical improvement before planning discharge 12/23- patient improving by the day. Able to ambulate without significant desaturation. On 2 L oxygen. Most of neurological markers negative. Fungal panel pending. As per pulmonology recommends patient to continue on 2 weeks of 40 mg prednisone and subsequent taper. Patient needs to follow up with pulmonology in the first week of January with a repeat ESR and CRP. he will likely be ready for discharge in 24-48 hours. Patient will require home CPAP and home oxygen on discharge. - Constitutional Vitals: Vital Signs Temp Pulse Resp BP Pulse Ox 97.7 F 85 18 132/66 93 12/23/16 07:43 12/23/16 07:16 12/23/16 07:43 12/23/16 07:43 12/23/16 07:43 Period Temp Pulse Resp BP Sys/Waldron Pulse Ox Last 24 Hr 97.1 F-98.2 F 79-92 16-20 121-138/55-73 91-97 Intake and Output 12/22/16 12/23/16 12/23/16 21:59 05:59 13:59 Intake Total 240 / 240 500 / 500 Output Total 1300 / 1300 1650 / 1650 700 / 700 Balance -1060 / -1060 -1650 / -1650 -200 / -200 Weight 211 lb Intake & Output: Intake & Output 12/22/16 12/23/16 12/23/16 21:59 05:59 13:59 Intake Total 240 / 240 500 / 500 Output Total 1300 / 1300 1650 / 1650 700 / 700 Balance -1060 / -1060 -1650 / -1650 -200 / -200 Weight 211 lb Intake: Oral 240 / 240 500 / 500 Output: Void Amount 1300 / 1300 1650 / 1650 700 / 700 Other: Meal Dinner Breakfast Percent of Meal Consumed 100% 100% Feeding Ability Assist with Tray Set Up # Voids 4 # Bowel Movements 1 General appearance: no acute distress, obese Exam: n 2 L oxygen Able to ambulate no anxiety or agitation Nondistended abdomen Medical - PN: Obj Da - Labs CBC & Chem 7: 12/23/16 04:08 12/23/16 04:08 Labs: Abnormal Lab Results 12/23/16 12/23/16 12/22/16 04:08 04:08 04:06 RBC Hgb Hct RDW 16.3 H Plt Count 445 H Gran % 85.9 H Lymph % (Auto) 9.0 L Lymph # (Auto) 0.7 L ESR 60 H BUN 26 H Glucose 57 L Phosphorus 4.6 H 4.8 H GGT 149 H 141 H AST 39 H 41 H ALT 42 H Alkaline Phosphatase 153 H 157 H Lactate Dehydrogenase 309 H 337 H C-Reactive Protein Total Protein 5.7 L Albumin 3.0 L 2.9 L Albumin/Globulin Ratio Triglycerides 172 H 182 H Rheumatoid Factor 12/22/16 12/21/16 12/21/16 04:06 05:12 05:12 RBC 3.98 L Hgb 11.9 L 11.6 L Hct 35.2 L RDW 16.0 H 15.7 H Plt Count 451 H Gran % 85.5 H 88.1 H Lymph % (Auto) 9.9 L 6.5 L Lymph # (Auto) 0.7 L 0.6 L ESR 83 H BUN 26 H Glucose 122 H Phosphorus GGT 133 H AST ALT Alkaline Phosphatase 176 H Lactate Dehydrogenase 324 H C-Reactive Protein 1.5 H Total Protein Albumin 2.8 L Albumin/Globulin Ratio 0.9 L Triglycerides 220 H Rheumatoid Factor 12/16/16 21:51 RBC Hgb Hct RDW Plt Count Gran % Lymph % (Auto) Lymph # (Auto) ESR BUN Glucose Phosphorus GGT AST ALT Alkaline Phosphatase Lactate Dehydrogenase C-Reactive Protein Total Protein Albumin Albumin/Globulin Ratio Triglycerides Rheumatoid Factor 14 A Meds: Medications Acetaminophen (Tylenol) 650 mg PO Q6HP PRN PRN Reason: PAIN/FEVER > 101 Hydrocodone Bitart/Acetaminophen ([place] 5/325mg) 1 tab PO Q4HP PRN PRN Reason: Pain Albuterol/Ipratropium (Duoneb) 3 ml NEB Q4HRT [facility] Last Admin: 12/23/16 07:13 Dose: 3 ml Aspirin (Aspirin) 81 mg PO DAILY [facility] Last Admin: 12/23/16 09:33 Dose: 81 mg Carvedilol (Coreg) 12.5 mg PO BIDCC [facility] Last Admin: 12/23/16 09:32 Dose: 12.5 mg Colestipol HCl (Colestid) 1 gm PO QID [facility] Last Admin: 12/23/16 08:20 Dose: 1 gm Dextrose (Dextrose 50%) 0 ml IV UD PRN PRN Reason: Hypoglycemia Diagnostic Test (Pha) (Accu-Chek) 1 each FS ACHS [facility] Last Admin: 12/23/16 06:56 Dose: 1 each Glucose (Insta-Glucose) 15 gm PO PRN PRN PRN Reason: Hypoglycemia Heparin Sodium (Porcine) (Heparin) 5,000 unit SQ Q12 [facility] Last Admin: 12/23/16 09:31 Dose: 5,000 unit Insulin Glargine (Lantus) 50 unit SQ BID [facility] Last Admin: 12/23/16 09:31 Dose: 50 unit Insulin Human Lispro (Humalog) 0 unit SQ ACHS [facility] PRN Reason: Protocol Last Admin: 12/23/16 06:57 Dose: Not Given Magnesium Hydroxide (Milk Of Magnesia) 30 ml PO DAILYP PRN PRN Reason: Constipation Methocarbamol (Robaxin) 750 mg PO Q6HP PRN PRN Reason: Muscle Spasm Naloxone HCl (Narcan) 0.1 mg IV Q2MIN PRN PRN Reason: Opiate Reversal Nortriptyline HCl (Pamelor) 10 mg PO [facility] Last Admin: 12/22/16 21:10 Dose: 10 mg Ondansetron HCl (Zofran) 4 mg IV Q4HP PRN PRN Reason: Nausea And Vomiting Pantoprazole Sodium (Protonix) [facility] Last Admin: 12/23/16 06:59 Dose: 40 mg [facility]) [facility] Last Admin: 12/23/16 09:32 Dose: 40 mg Ropinirole HCl (Requip) 0.75 mg PO [facility] Last Admin: 12/22/16 21:10 Dose: 0.75 mg Sertraline HCl (Zoloft) 50 mg PO DAILY [facility] Last Admin: 12/23/16 09:32 Dose: 50 mg Sitagliptin Phosphate (Januvia) 100 mg PO QDAY [facility] Last Admin: 12/23/16 09:33 Dose: 100 mg Sodium Chloride (Saline Flush) 10 ml IV Q8 [facility] Last Admin: 12/23/16 04:58 Dose: 10 ml Throat Lozenges (Cepacol) 1 lozenge PO PRN PRN PRN Reason: Sore Throat Medical - PN: A/P - Time Spent With Patient Total time spent is greater than 50% in coordination of care (as documented) at patient's floor/unit and/or counseling patient: 25 - 35 minutes - Narrative A/P Narrative: A/P * Acute hypoxic Respiratory Failure: clinically improving Currently on 2 L oxygen. n IV steroids * Interstitial pneumonitis. Unclear etiology. Pulmonology following. Extensive immunological workup including JOSUE/ANCA negative, complements elevated. Fungal workup pending including blasto histo and cocci. continue levofloxacin for additional 24 hours atypical organism coverage. rednisone 40 mg for 2 weeks followed by taperas per pulmonology * DM: continue basal prandial insulin. Blood sugars at goal. Lantus dose cut down from 110 ->50 * HTN -on Coreg. Systolics at goal * Acute Kidney INjury: resolved * Abnl LFt -normalized * h/o reflux disease: continue PPI * DVT hep sq * Full code plan * Continue prednisone 40 mg for 2 weeks followed by taper * ontinue pulmonary toilet * discontinue levofloxacin in 24 hours * Arrange home CPAP and home oxygen on discharge * follow pulmonology first week January * ESR end of December
[2016-12-23] MEDS: rOPINIRole 0.25 MG TABLET PO SCH (20:48)
[2016-12-23] MEDS: NORTRIPTYLINE 10 MG CAPSULE PO SCH (20:49)
[2016-12-24] MEDS: IPRATROPIUM/ALBUTEROL 3 ML AMPUL.NEB NEB SCH ×2 (04:24→08:16)
[2016-12-24] MEDS: 0.9 % SODIUM CHLORIDE 10 ML SYRINGE IV SCH (04:51)
[2016-12-24 06:29] LABS: Basophils # (Auto) 0 K/mcL (0.0-0.3); Basophils % (Auto) 0.3 % (0.0-2.0); Eosinophils # (Auto) 0.1 K/mcL (0.0-0.7); Eosinophils % (Auto) 1.1 % (0.0-7.0); Granulocytes % (Auto) 73.6 % (38.0-78.0); Lymphocytes # (Auto) 1.5 K/mcL (1.5-4.8); Lymphocytes % (Auto) 17.5 % (15.5-49.0); Mean Cell Volume 89.2 fL (80.0-100.0); Mean Corpuscular HGB Conc 33.4 g/dL (31.0-36.0); Mean Corpuscular Hemoglobin 29.8 pg (26.0-34.0); Monocytes # (Auto) 0.7 K/mcL (0.1-0.9); Monocytes % (Auto) 7.5 % (1.0-12.0); Platelet Count 316 K/mcL (140-440); RBC 4.23 M/mcL (4.00-5.20); Red Cell Distribution Width 16.4 % (11.5-14.5)
[2016-12-24 06:55] LABS: ALT/SGPT 49 U/l (0-40); Albumin 2.8 gm/dL (3.2-5.2); Alkaline Phosphatase 142 U/L (39-117); Bilirubin,Direct < 0.2 mg/dL (0.0-0.3); Blood Urea Nitrogen 26 mg/dl (8-23); Gamma Glutamyl Transpeptidase 142 U/L (5-36); Magnesium 2.2 mg/dL (1.6-2.5); Uric Acid 4.4 mg/dL (2.5-8.0)
[2016-12-24] MEDS: predniSONE 20 MG TABLET PO SCH (07:41)
[2016-12-24] MEDS: PANTOPRAZOLE 40 MG TABLET PO SCH (07:41)
[2016-12-24] MEDS: INSULIN LISPRO 1 UNIT/0.01 ML UNIT SQ SCH ×2 (07:41→12:26)
[2016-12-24] MEDS: CARVEDILOL 6.25 MG TABLET PO SCH (07:41)
[2016-12-24] MEDS: SERTRALINE 50 MG TABLET PO SCH (11:16)
[2016-12-24] MEDS: HEPARIN 5,000 UNIT/ML VIAL SQ SCH (11:16)
[2016-12-24] MEDS: COLESTIPOLL 1 GM TABLET PO SCH (11:16)
[2016-12-24] MEDS: sitaGLIPtin 50 MG TABLET PO SCH (11:16)
[2016-12-24] MEDS: ASPIRIN 81 MG TAB.CHEW PO SCH (11:17)
[2016-12-24] MEDS: INSULIN GLARGINE, HUMAN 1 UNIT/0.01 ML SQ SCH (11:25)
--- NOTE | 2016-12-24 11:59 | Discharge Summary ---
Medical - DS: Prov Patient information: Note initiated : 12/24/16 at 11:59 am Patient: Irma Craig 66 y/o F admitted on 12/16/16 for SOB,Low O2 sat, Low BP/Hypoxic Respiratory Failure. Date of admission: 12/16/16 21:12 Discharge date: 12/24/16 Primary care physician: Bacilio Alcocer Admitting clinician: Jesús Archuleta Attending physician on discharge: Colleen Pace Medical - DS: Meds - Discharge Medications Prescriptions: predniSONE [Prednisone] 40 mg PO [facility] #20 tablet Active and Home Medications: Discharge medications: Prednisone 40 mg daily, for 2 more weeks, then follow-up with pulmonary Decrease Lantus to 40 units subcu twice daily. Decrease by 5 units for any glucose less than 160, or increase by 5 units for glucose greater than 200 Tylenol 650 mg every 6 hours as needed Albuterol inhaler every 4 hours as needed Aspirin 81 mg daily Coreg 12.5 mg twice daily Colestipol 1 g p.o. 4 times daily [place] 5/325 every 4 hours as needed Methocarbamol 750 mg every 6 hours as needed Nortriptyline 10 mg nightly Zofran 4 mg sublingual as needed Requip 0.75 mg nightly Januvia 100 mg daily Sertraline 50 mg daily Losartan 100 mg daily Home O2 @ liters with exertion, ok to be on RA at rest Home BIPAP, per prev. pulm. recommendations, 02/12 Hold amlodipine until follow-up with primary care physician. Prior home Medications: Aspirin [Adult Low Dose Aspirin EC] 81 mg PO DAILY 02/02/15 [History Confirmed 12/17/16 Last Taken 12/16/16 10:00] glucosamine HCl 1,500 mg tablet 1,500 mg PO QDAY 11/17/15 [History Confirmed 12/25 Last Taken 12/16/16 10:00] Nortriptyline HCl [Pamelor] 10 mg PO HS 90 Days 03/01/16 [History Confirmed 12/25 Last Taken 12/16/16 22:00] colestipol 1 gram tablet 1 g PO QID tab 07/27/16 [History Confirmed 12/17/16 Last Taken 12/16/16 22:00] sertraline 50 mg tablet 50 mg PO DAILY #90 tab 07/27/16 [Rx Confirmed 12/17/16 Last Taken 12/16/16 10:00] sitagliptin 100 mg tablet 100 mg PO QDAY #90 tab 07/27/16 [Rx Confirmed Last Taken 12/16/16 10:00] omeprazole 20 mg capsule,delayed release 20 mg PO QDAY #90 cap 10/14/16 [Rx Confirmed 12/17/16 Last Taken 12/16/16 10:00] ropinirole 0.25 mg tablet 0.75 mg PO HS #270 tab 10/14/16 [Rx Confirmed Last Taken 12/16/16 22:00] hydrocodone 7.5 mg-acetaminophen 325 mg tablet 1 tab PO Q6H PRN #20 tab [Rx Confirmed 12/17/16 Last Taken Unknown] methocarbamol 750 mg tablet 750 mg PO Q6H #30 tab 10/27/16 [Rx Confirmed Last Taken Unknown] amlodipine 10 mg tablet 10 mg PO DAILY #90 tab 11/10/16 [Rx Confirmed 12/17/16 Last Taken 12/15/16 21:00] carvedilol 12.5 mg tablet 12.5 mg PO BID #180 tab 11/10/16 [Rx Confirmed Last Taken Unknown] insulin glargine 100 unit/mL subcutaneous solution 180 unit SUB-Q .COMPLEX #180 ml 11/10/16 [Rx Confirmed 12/17/16 Last Taken 12/16/16 22:00] losartan 100 mg tablet 100 mg PO DAILY #90 tab 11/10/16 [Rx Confirmed 12/17/16 Last Taken 12/16/16 10:00] amoxicillin 875 mg-potassium clavulanate 125 mg tablet 1 tab PO BID #20 tab [Rx Confirmed 12/17/16 Last Taken Unknown] albuterol sulfate HFA 90 mcg/actuation aerosol inhaler 2 puff INHALATION .Q4-6H PRN #18 g 12/13/16 [Rx Confirmed 12/17/16 Last Taken 12/15/16 17:00] azithromycin 250 mg tablet 250 mg PO QDAY #6 tab 12/13/16 [Rx Confirmed Last Taken Unknown] codeine 10 mg-guaifenesin 100 mg/5 mL oral liquid 10 ml PO TID PRN #120 ml 12/13 [Rx Confirmed 12/17/16 Last Taken 12/16/16 11:00] Medical - DS: Hosp Hospital course: Mrs. Craig is a 66 year old F December 16, 2016, history of present illness: Ms. Craig is a 66 year old Female with h/o smoking in the past presents to the ER with complaints of shortness of breath, cough, not feeling well, fever, headache and nausea/ vomiting x 2 weeks The patient was alright approximately 2 weeks ago, when she started to have some headache, with some photophobia, she also noted difficulty in breathing and cough, she had a low grade temperature tmax as per was 101. There was ? sinus symptoms. the cough was dry without sputum associated with shortness of breath, at rest and activity. She also thought there may be some wheezing. The patient symptoms worsened after a few days and therefore she saw Dr Loza, who started the patient on Augmentin. The patient did take the medication but did not have much relief. The patients symptoms so she went back to see the doctor. This time her oxygen sats were low in the clinic but she responded to albuterol She was started on z pack and albuterol along with some cough medication. Plan was also to use medrol dose pack, but I did not see any prescription for same. The patient took her meds but there was no improvement in her symptoms. She was supposed to see her pcp next week but since her condition worsend,and that she had nausea and vomiting, with very little pp intake she was asked to come to the ER for further eval. In the ER she was hypoxic and tachypenic, she had normal wbc count, slight bump in her creat from 0.8 ti 1.2, elevated neurtophils but normal eosinophils, mildly elevated bnp, neg ekg for acute ischemia and neg troponin. She underwent a CT Scan which shows a diffuse infiltrative disease ARDS vs Intersitial PNA vs Pulm Hemorrhage, vs ILD vs inflammatory disease vs atypical pna. Neg for PE The patient was admitted to the hospital for further management December 24, 2016: Hospital course: -The patient was admitted with a diagnosis of diffuse interstitial pneumonia, versus pulmonary hemorrhage versus inflammatory lung disease versus ARDS. He was treated with oxygen, IV Levaquin, and steroids. She had consultation with Dr. Guido of pulmonary. She has continued to have significant hypoxia, specifically with exertion, but this is gradually improving. She was also started on CPAP for her recent diagnosis of obstructive sleep apnea. Pulmonary had recommended starting her on BiPAP at home. Echocardiogram was unremarkable. Pulmonary recommends that the patient continue on with oral steroids at this point. Levaquin can be discontinued. Numerous studies are still pending, regarding the possible etiology of her interstitial pneumonia. -On admission, the patient had reported that she was taking 180 units of Lantus subcu twice daily at home, for uncontrolled diabetes. Apparently this was a mistake, and she was supposed to be taking 90 units of insulin twice a day. She was injecting into her thighs. Here she was placed on 50 units of Lantus twice a day plus sliding scale, but for the last several days has had numerous episodes of hypoglycemia. At this point we will decrease her Lantus to 40 units twice daily. We will withhold the sliding scale Humalog. She is to monitor her blood glucoses 4-6 times a day, and keep a diary. If any glucoses are less than 160, she has been advised to decrease the Lantus dose. If glucoses are greater than 200, she may increase her Lantus by 5 units. She should follow-up with her primary care physician next week, to review all of these numbers. It is unclear why glucoses are running low, but this could be a combination of using Levaquin and an ARB, etc. There may also have been absorption issues related to her injection site at home. Today, the patient says she is feeling better. She still has moderate dyspnea with and after exertion, and does desaturate to 84% on room air. She maintains oxygen saturation above 90% at rest. She otherwise denies fever chills, chest pain or palpitations, GI or symptoms. On exam, she is an overweight white female, in no acute distress. Neck is supple without obvious JVD. Cardiac exam shows regular rate and rhythm. Lungs: She has some fine scattered crackles, but otherwise lungs are clear to auscultation, without obvious wheezing. Abdomen is soft and nontender. Extremities show no significant edema. Neurologic exam is grossly nonfocal. Assessment and plan: * #1. Acute hypoxic Respiratory Failure/interstitial pneumonia.: clinically improving * -Continue prednisone 40 mg p.o. daily. Arrange for home oxygen, 2 L continuous, although she can take this off at rest. * Levaquin is discontinued today. * Extensive immunological workup including JOSUE/ANCA negative, complements elevated. Fungal workup pending including blasto histo and cocci.Prednisone 40 mg for 2 weeks followed by taper as per pulmonology * Albuterol inhaler as needed * * #2. DM: continue basal prandial insulin. * The patient has had hypoglycemic episodes into the 40s the last 2 days. Lantus has been decreased to 40 units subcu twice daily, with instructions to decrease or increase, as needed. The patient will check Accu-Cheks at least 4-6 times a day, and keep a diary. She should bring this to her follow-up appointment. * * * #3. HTN -on Coreg. Systolics at goal * Resume losartan, but hold amlodipine until follow-up with primary care physician. * * #4. Acute Kidney INjury: resolved * * #5. Abnl LFt -still slightly elevated. Please check again at follow-up appointment. * * #6. h/o reflux disease: continue PPI * * #7. DVT hep sq was used. * * #8. Full code Discharge diagnosis: Interstitial pneumonitis with hypoxic respiratory failure. Hypoglycemia. - Time Spent with Patient Total time spent providing and/or coordinating discharge services: Greater than 30 minutes Medical - DS: Exam - Constitutional Vitals: Vital Signs Temp Pulse Pulse Resp BP BP Pulse Ox 12/24/16 08:18 73 16 12/24/16 08:00 97.7 F 62 18 190/73 93 12/24/16 04:00 18 141/68 93 12/24/16 00:00 97.5 F 16 141/59 93 12/23/16 23:43 80 18 12/23/16 20:00 97.0 F 73 18 119/47 93 12/23/16 19:24 80 18 12/23/16 15:50 97.1 F 80 74 16 125/59 95 12/23/16 12:00 98.8 F 67 18 131/63 95 Intake and Output 12/23/16 12/24/16 12/24/16 21:59 05:59 13:59 Intake Total 540 / 540 Output Total 1000 / 1000 1300 / 1300 Balance -460 / -460 -1300 / -1300 Intake: Oral 540 / 540 Output: Void Amount 1000 / 1000 1300 / 1300 Other: Meal Dinner Percent of Meal Consumed 100% Feeding Ability Independent # Voids 1 Weight 210 lb 8 oz Medical - DS: Data Labs on day of discharge: Labs from last 24 hours 12/24/16 12/24/16 04:23 04:23 WBC 8.8 RBC 4.23 Hgb 12.6 Hct 37.7 MCV 89.2 MCH 29.8 MCHC 33.4 RDW 16.4 H Plt Count 316 MPV 8.4 Gran % 73.6 Lymph % (Auto) 17.5 [place] % (Auto) 7.5 Eos % (Auto) 1.1 Baso % (Auto) 0.3 Gran # 6.5 Lymph # (Auto) 1.5 [place] # (Auto) 0.7 Eos # (Auto) 0.1 Baso # (Auto) 0 Sodium 139 Potassium 3.8 Chloride 98 Carbon Dioxide 28 Anion Gap 13.0 BUN 26 H Creatinine 0.7 GFR Calculation 89 Glucose 71 Uric Acid 4.4 Calcium 9.0 Phosphorus 3.5 Magnesium 2.2 Total Bilirubin 0.3 Direct Bilirubin < 0.2 GGT 142 H AST 44 H ALT 49 H Alkaline Phosphatase 142 H Lactate Dehydrogenase 334 H Total Protein 5.6 L Albumin 2.8 L Globulin 2.8 Albumin/Globulin Ratio 1.0 Triglycerides 321 H Sed rate on December 21: 83, on December 23: 60. Next Rheumatoid factor elevated at 14, JOSUE negative, Anka screen negative C3 and C4 are elevated Antibodies for Blastomyces and Coccidioides, and histoplasma are pending. Mycoplasma is negative. Screens for hepatitis B and C and HIV are all negative. Blood cultures were negative. MRSA screen was negative. Echocardiogram: Normal left ventricle, ejection fraction 60%. Borderline dilated left atrium. Mild mitral regurgitation. December 19: Chest x-ray: Diffuse groundglass infiltrates not well visualized on plain chest x-ray. No other abnormalities noted. Next EKG shows sinus rhythm at a rate of 72, otherwise normal. December 16: ABG from the ER: PH 7.52, CO2 29, PO2 70, bicarb 23, O2 saturation 96% December 16: CT of the chest: Diffuse groundglass infiltrates, with differential including acute interstitial pneumonia, ARDS, pulmonary edema or hemorrhage, eosinophilic pneumonia, viral pneumonia. Centrilobular emphysema. Medical - DS: A/P - Patient/Caregiver Discharge Instructions Activity: increase activity as tolerated Diet: Low Sodium (2gm), Consistent Carbohydrate Additional Instructions: 1. Interstitial pneumonitis. Take prednisone, 40 mg, every day, until your follow-up with Dr. Guido of pulmonary, the first week of January. He will also recheck your sed rate and CRP levels. Oxygen, 2 L. Where with any physical activity at all. You can use this at rest as well, or take it off when at rest. Have your primary care doctor recheck your oxygen levels at follow-up. We are trying to arrange for your home BiPAP machine to use every evening, as directed. Albuterol inhaler was previously prescribed. Use 2 puffs every 4 hours as needed for any wheezing or increased shortness of breath. Next Please return to the emergency room or call your physician, for any increased shortness of breath, fever, cough. Next 2. Diabetes. Your blood sugars have run quite low while here at the hospital. Please check your blood glucose at least 6 times a day for the next few days. Please decrease Lantus to 40 units twice a day. Please inject in your abdomen, as they did here at the hospital. If glucose is less than 160, decrease the Lantus dose by 5 units. If glucose is much over 200, then increase Lantus by 5 units. Please review your diary of blood glucoses and insulin doses, with your primary care physician next week. Next 3. Hypertension. Continue Coreg and losartan. Please hold amlodipine until you see your doctor next week. Next 4. Liver function tests have been a bit elevated. Please have your doctor recheck these. Discharge medications: Prednisone 40 mg daily, for 2 more weeks, then follow-up with pulmonary Decrease Lantus to 40 units subcu twice daily. Decrease by 5 units for any glucose less than 160, or increase by 5 units for glucose greater than 200 Tylenol 650 mg every 6 hours as needed Albuterol inhaler every 4 hours as needed Aspirin 81 mg daily [place] 12.5 mg twice daily Colestipol 1 g p.o. 4 times daily [place] 5/325 every 4 hours as needed Methocarbamol 750 mg every 6 hours as needed Nortriptyline 10 mg nightly Zofran 4 mg sublingual as needed Requip 0.75 mg nightly Januvia 100 mg daily Sertraline 50 mg daily Losartan 100 mg daily Home O2 @ liters with exertion, ok to be on RA at rest Home BIPAP, per prev. pulm. recommendations, 02/12 Hold amlodipine until follow-up with primary care physician. Prescriptions: predniSONE [Prednisone] 40 mg PO [facility] #20 tablet - Follow up Plan Follow up with: Bacilio Alcocer MD [Primary Care Provider] - Disposition: Home, Self-Care Prognosis: Good Rehab Potential: Good I certify that the patient requires SNF services: No Overall status at discharge: patient is progressing back to baseline
[2016-12-27 10:16] LABS: Legionella pneumophilia Ag, Ur NOT DETECTED
[2016-12-27 11:37] LABS: Histoplasma Mycelial AB <1:8 (<1:8)
== END 2016-12-24 14:50 | disposition home or self-care (01) | DRG 207 ==
LOC: ED 17:00 → ICU 21:12
PROVIDERS: ADMIT Internal Medicine; ATTEND Internal Medicine